=== PATIENT | female | born 1950 | race Caucasian/White ===

== ENCOUNTER → 2016-03-20 17:18 | Outpatient (CLI) | payer MEDICARE | END | disposition home or self-care (01) | LOC: D.MAMMO 03-11 11:00 | DX: Z12.31 Encounter for screening mammogram for malignant neoplasm of breast (principal) ==

== ENCOUNTER 2016-09-23 12:48 | Inpatient (IN) | payer MEDICARE ==
[~2016-09-23] VITALS: Ht 177.8 cm; Wt 96.5 kg
--- NOTE | 2016-09-23 13:15 | NUR ---
RECEIVED PT VIA WHEELCHAIR ACCOMPANIED BY HOSPITAL STAFF AND GUEST MEMBER. PT IS ALERT AND ORIENTED. ON ROOM AIR. NO IV. WILL ADMIT PT AND ATTEMPT TO SITE PT WITH IV CATHETER. WILL CONTINUE TO MONITOR.
[2016-09-23] MEDS ORDERED: VITAMIN C1000 MG PO (13:21)
[2016-09-23 13:22] VITALS: BP 108/83; BMI 30.4
[2016-09-23] MEDS ORDERED: BAYER CHEWABLE81 MG PO (13:22)
[2016-09-23 13:34] VITALS: BP 108/58
--- NOTE | 2016-09-23 13:35 | NUR ---
PT TO XRAY VIA WHEELCHAIR.
--- NOTE | 2016-09-23 13:35 | NUR ---
EVAN, CHARGE NURSE INSERTED 20G IV CATHETER INTO PTS LEFT AC X1 STICK. WILL HANG FLUIDS AND GIVE MEDICATIONS ORDERED.
[2016-09-23 13:45] LABS: INR 1.05 (0.85-1.17); PROTIME 13.6 SECONDS (11.6-15.0)
[2016-09-23 13:57] LABS: ALBUMIN 2.9 g/dL (3.4-5.0); ANION GAP 16.1 mmol/L (8-16); BILIRUBIN - TOTAL 0.71 mg/dL (0.2-1.3); CALCIUM 8.8 mg/dL (8.5-10.1); CARBON DIOXIDE 26.7 mmol/L (21.0-32.0); CREATININE - SERUM 1.1 mg/dL (0.6-1.3); POTASSIUM - SERUM 3.8 mmol/L (3.5-5.1)
[2016-09-23 14:00] LABS: HEMATOCRIT 38.9 % (36.0-48.0); HEMOGLOBIN 12.6 g/dL (12-16); MCH 25.3 pg (26.0-34.0); MCHC 32.4 g/dL (31.0-37.0); MCV 78.1 fL (80.0-100.0); PLATELET COUNT 281 10x3/uL (130-400); RBC 4.98 10x6/uL (4.00-5.40); WBC 25.8 10x3/uL (4.8-10.8)
[2016-09-23 14:25] LABS: ANISOCYTOSIS OCC; HYPOCHROMASIA OCC; LYMPHOCYTES 7 % (15-50); MONOCYTES 13 % (2-11); NEUTROPHILS 68 % (40-80); PLATELET ESTIMATE NORMAL; ROULEAUX OCC
--- NOTE | 2016-09-23 15:49 | NUR ---
SCDS PLACED ON PT ORDERED.
--- NOTE | 2016-09-23 15:49 | NUR ---
1515- PT TO CT VIA WHEELCHAIR. 1550- PT BACK FROM CT VIA WHEELCHAIR.
--- NOTE | 2016-09-23 16:12 | NUR ---
PT IS CURRENTLY LAYING IN BED ON RIGHT SIDE WITH EYES OPEN RESTING. PT GIVEN [place] HAT AND INSTRUCTED WHEN NEEDING TO URINATE LET STAFF MEMBERS KNOW SO WE CAN GET URINE SAMPLE ORDERERD, PT AGREES. PT STATES WHEN DIRECTOR CHILD ABUSE THERAPY TOOK TEMP IT WAS 100.2, WILL GIVE PT TYLENOL ORDERED FOR FEVER AND CONTINUE TO MONITOR.
[2016-09-23 16:38] VITALS: BP 102/65
[2016-09-23 17:05] LABS: APPEARANCE CLEAR (CLEAR); BILIRUBIN NEGATIVE (NEGATIVE); COLOR YELLOW (YELLOW); GLUCOSE NEGATIVE (NEGATIVE); KETONE NEGATIVE (NEGATIVE); LEUKOCYTE ESTERASE NEGATIVE (NEGATIVE); NITRITE NEGATIVE (NEGATIVE); PROTEIN TRACE mg/dL (NEGATIVE); SPECIFIC GRAVITY 1.015 (1.005-1.020); UROBILINOGEN NORMAL (NORMAL)
--- NOTE | 2016-09-23 17:44 | NUR ---
PT IS LAYING IN BED ON LEFT SIDE WITH EYES OPEN RESTING. STATES HER PAIN IS A LITTLE BETTER WITH PAIN LEVEL OF 4/10 PAIN COMING FROM PERINEAL AREA AFTER HAVING TYLENOL. NO NEED AT CURRENT TIME. WILL CONTINUE TO MONITOR.
--- NOTE | 2016-09-23 19:30 | NUR ---
ASSESSMENT COMPLETE. S1S2. ON ROOM AIR; PT SOB; SHALLOW; COUGH WITH DEEP BREATHING. NON PRODUCTIVE. UP ADLIB. RIGHT AC PIV; PATENT. WEAKNESS NOTED TO LOWER EXTREMITIES DUE TO SORE AND SWELLING AT GROIN/PERINEAL AREA AND LEFT BUTTOCKS. QUARTER SIZE DARK DISCOLORATION ON LEFT BUTTOCKS. LABIA SWELLING NOTED TO LEFT SIDE. C/O PAIN 4/10. NO OTHER COMPLAINTS AT THIS TIME.
--- NOTE | 2016-09-23 20:20 | NUR ---
DR. OLSON AT BEDSIDE.
[2016-09-23 21:02] VITALS: BP 127/64
[2016-09-24] VITALS (8 sets, daily range): BP systolic 100–122; BP diastolic 50–71; Ht 177.8 cm; Wt 96.5 kg
--- NOTE | 2016-09-24 00:11 | NUR ---
PT ASSISTED TO BEDSIDE BATHROOM. SLIGHT WEAKNESS. PT C/O DIFFICULTY URINATING; DESPITE FULL BLADDER AND URGE. WILL ATTEMPT AT LATER TIME PER REQUEST OF PT.
--- NOTE | 2016-09-24 03:30 | NUR ---
PT HAD BM; DID NOT MAKE IT TO THE RESTROOM IN TIME. PT CLEANED VIA SHOWER. FLOOR BLEACH CLEANED. FRESH LINENS, FRESH GOWN, AND NEW BRIEF PROVIDED.
--- NOTE | 2016-09-24 04:17 | NUR ---
INCREASE NOTED TO RASH/HIVES ALL OVER PT BODY. MORE NOTICABLE THAN PREVIOUS ASSESSMENT. PT DENIES ITCHING OR PAIN. PT STATES DIDN'T REALIZE IT WAS THERE.
--- NOTE | 2016-09-24 05:40 | NUR ---
CLEANED PERINEAL AREA WITH PREOP CLEAN. RASH/HIVES HAVE DECREASED AND IS BARELY VISABLE.
--- NOTE | 2016-09-24 06:51 | NUR ---
CONSENTS SIGNED FOR INCISION AND DRAINAGE TODAY WITH DR. MCKINNON.
[2016-09-24 06:52] LABS: BASOPHILS 0.1 % (0-2); EOSINOPHILS 0 % (0-7); HEMATOCRIT 35.3 % (36.0-48.0); HEMOGLOBIN 11.2 g/dL (12-16); IMMATURE GRANULOCYTES 0.8 % (0-5); LYMPHOCYTES 5.3 % (15-50); MCH 24.8 pg (26.0-34.0); MCHC 31.7 g/dL (31.0-37.0); MCV 78.3 fL (80.0-100.0); MEAN PLATELET VOLUME 10.2 fL (7.4-10.4); NEUTROPHILS 85.8 % (40-80); PLATELET COUNT 247 10x3/uL (130-400); RBC 4.51 10x6/uL (4.00-5.40); RDW 14.1 % (11.5-14.5); WBC 20.7 10x3/uL (4.8-10.8)
--- NOTE | 2016-09-24 06:52 | NUR ---
NO QUESTIONS OR CONCERNS WITH PROCEDURE. STATED DR. MCKINNON EXPLAINED IT WELL.
[2016-09-24 07:11] LABS: ALBUMIN 2.3 g/dL (3.4-5.0); ANION GAP 14.5 mmol/L (8-16); BILIRUBIN - TOTAL 0.99 mg/dL (0.2-1.3); CALCIUM 8.4 mg/dL (8.5-10.1); CARBON DIOXIDE 25.9 mmol/L (21.0-32.0); CREATININE - SERUM 0.9 mg/dL (0.6-1.3); POTASSIUM - SERUM 3.4 mmol/L (3.5-5.1); PROTEIN - SERUM 6.5 g/dL (6.4-8.2)
[2016-09-24 07:18] LABS: C-REACTIVE PROTEIN 32.5 mg/dL (0.0-0.9)
--- NOTE | 2016-09-24 08:25 | NUR ---
NURSE AT BS ASSISTING WITH NEEDS. CALL LIGHT IN REACH. WILL CONT. PLAN OF CARE.
--- NOTE | 2016-09-24 12:05 | NUR ---
PT RESTING IN BED WITH EYES OPEN CALL LIGHT IN REACH WILL MONITER
--- NOTE | 2016-09-24 14:00 | NUR ---
PT WENT TO SURGERY FOR I&D
--- NOTE | 2016-09-24 14:00 | NUR ---
PT RETURNED FROM SURGERY TOLERATED WELL VITALS STABLE WILL MONITER
--- NOTE | 2016-09-24 19:35 | NUR ---
PT LYING IN BED WITH EYES CLOSED, NORMAL RISE AND FALL OF CHEST NO SIGNS OF DISTRESS, PT O2 WAS AT 84, NC WAS NOT IN PLACE, REAPPLIED NC AND PT IS NOW AT 94. BED IN LOW POSITION CALL LIGHRT WITHIN REACH
--- NOTE | 2016-09-24 23:18 | NUR ---
PT LYING IN BED WITH EYES OPENED, REINFORCED IMPORTANCE OF LEAVING N/C IN TO PREVENT O2 DECLINING. NO NEEDS AT THIS TIME. CONTINUE TO MONITOR
[2016-09-25 04:20] VITALS: BP 106/59
[2016-09-25 06:05] LABS: BASOPHILS 0.1 % (0-2); EOSINOPHILS 0.2 % (0-7); HEMATOCRIT 31.1 % (36.0-48.0); HEMOGLOBIN 9.9 g/dL (12-16); LYMPHOCYTES 6.6 % (15-50); MCH 24.9 pg (26.0-34.0); MCHC 31.8 g/dL (31.0-37.0); MCV 78.3 fL (80.0-100.0); MEAN PLATELET VOLUME 10.3 fL (7.4-10.4); MONOCYTES 7.7 % (2-11); NEUTROPHILS 84.4 % (40-80); PLATELET COUNT 243 10x3/uL (130-400); RBC 3.97 10x6/uL (4.00-5.40); RDW 14.3 % (11.5-14.5)
[2016-09-25 06:21] LABS: WBC 15.1 10x3/uL (4.8-10.8)
[2016-09-25 08:00] VITALS: BP 119/59
--- NOTE | 2016-09-25 08:59 | NUR ---
AM MEDS GIVEN AT THIS TIME. PT IN BED, DENIES ANY NEEDS AT THIS TIME. FAMILY AT BEDSIDE, CALL LIGHT IN REACH, NAD NOTED, WILL CONTINUE TO MONITOR.
[2016-09-25 12:30] VITALS: BP 108/61
--- NOTE | 2016-09-25 13:02 | NUR ---
PT'S IV HURTING A LITTLE, CHECKED AND NO SIGNS OF INFILTRATION NOTED. RATE ON FLUIDS DECREASED TO 75CC/HR PT STATED THAT IT FEELS MUCH BETTER NOW THAT RATE IS SLOWED DOWN. PT DENIES ANY NEEDS AT THIS TIME. CALL LIGHT IN REACH, NAD NOTED, WILL CONTINUE TO MONITOR.
[2016-09-25 15:38] VITALS: BP 127/63
[2016-09-25 19:00] VITALS: BP 143/77
--- NOTE | 2016-09-25 19:00 | NUR ---
REC REPORT, ASSUMED CARE. ALERT/AWAKE, ORIENTED X 4 DENIES ANY NEEDS. IN CONTACT ISOLATION. ORIENTED TO CALL LIGHT FOR ANY NEEDS.
--- NOTE | 2016-09-25 22:39 | NUR ---
20 GAUGE TO LEFT FOREARM X 1 STICK. RIGHT FOREARM INFILTRATED, DC'D WITH TIP INTACT.
[2016-09-26] VITALS: BP 143/65
--- NOTE | 2016-09-26 02:29 | NUR ---
REQUESTED MORE PULL-UP BRIEFS. IS WEARING THEM FOR THE DRAINAGE FROM I/D SITE ON LEFT BUTTOCK, DRAINING PINKISH CLEAR SEROSANGUINEOUS FLUID. NO FOUL ODOR NOTED.
[2016-09-26 04:00] VITALS: BP 149/65
[2016-09-26 06:07] LABS: BASOPHILS 0.2 % (0-2); EOSINOPHILS 0.6 % (0-7); IMMATURE GRANULOCYTES 2.1 % (0-5); LYMPHOCYTES 12.3 % (15-50); MCH 24.9 pg (26.0-34.0); MCHC 32.3 g/dL (31.0-37.0); MCV 77.3 fL (80.0-100.0); MEAN PLATELET VOLUME 10.4 fL (7.4-10.4); MONOCYTES 7.8 % (2-11); PLATELET COUNT 284 10x3/uL (130-400); RBC 4.01 10x6/uL (4.00-5.40); RDW 14.3 % (11.5-14.5); WBC 12.6 10x3/uL (4.8-10.8)
[2016-09-26 06:10] LABS: ALBUMIN 1.9 g/dL (3.4-5.0); ALKALINE PHOSPHATASE 114 U/L (46-116); ALT (SGPT) 36 U/L (10-68); CALC OSMOLALITY 274 mosm/kg (275-300); CALCIUM 7.9 mg/dL (8.5-10.1); CARBON DIOXIDE 25.7 mmol/L (21.0-32.0); CHLORIDE - SERUM 103 mmol/L (98-107); CREATININE - SERUM 0.7 mg/dL (0.6-1.3); GLUCOSE 100 mg/dL (74-106); POTASSIUM - SERUM 3.1 mmol/L (3.5-5.1); PROTEIN - SERUM 5.9 g/dL (6.4-8.2); SODIUM 138 mmol/L (136-145); UREA NITROGEN 9 mg/dL (7-18); eGFR NON AFRICAN AMERICAN 89 mL/min (90-120)
[2016-09-26 08:01] VITALS: BP 136/68
--- NOTE | 2016-09-26 08:40 | NUR ---
ADMINISTERED AM MEDS. PT IN BED, DENIES ANY NEEDS AT THIS TIME. CALL LIGHT IN REACH, NAD NOTED, WILL CONTINUE TO MONITOR.
[2016-09-26 11:52] VITALS: BP 145/82
--- NOTE | 2016-09-26 13:03 | NUR ---
Nutrition follow-up: Diet: Regular PO intake 50-75% of meals labs reviewed +BM, loose Wt: 225# Recommend starting Danny nutritional supplement, 1 pkt BID mixed in juice. RDN following.
--- NOTE | 2016-09-26 14:51 | OP ---
PATIENT NAME: PRINCESS CARRILLO MEDICAL RECORD: [id number] :52 LOCATION:D.M2 D.2132 ADMISSION DATE:09/23/16 SURGEON: ISSAC MCKINNON MD DATE OF OPERATION: 09/24/2016 PREOPERATIVE DIAGNOSES: 1. Sepsis. 2. Left buttock abscess. 3. Urinary retention. POSTOPERATIVE DIAGNOSES: 1. Sepsis. 2. Left buttock abscess. 3. Urinary retention. PROCEDURE: Left buttock I&D. SURGEON: Issac Mckinnon MD REPORT OF PROCEDURE: The patient was placed in lithotomy position and the perianal region was prepped and draped in sterile fashion. A skin incision was made on the left buttock overlying some very thin tissue and there was immediately explosion of purulent material. Cultures were taken times 2. The material was very foul smelling and thick ojeda in color. The wound was suctioned out and then irrigated with peroxide and saline solution. We then performed a debridement of any of the subcutaneous fatty tissue, which was necrotic. At the conclusion of the case, we had most of the area clean. The abscess extended up to the patient's left labia. The wound was then packed with 2 inch Kerlix dipped in peroxide. COMPLICATIONS: None. CONDITION: Stable. ANESTHESIA: General endotracheal. BLOOD LOSS: 50 mL. TRANSINT:[id number] Voice Confirmation ID: [id number] DOCUMENT ID: [id number] ISSAC MCKINNON MD at 1451 CC: [id number] DICTATION DATE: 09/24/16 1521 ROLLER: 09/25/16 0[address] [place] [address]
[2016-09-26 16:07] VITALS: BP 132/76
[2016-09-26 19:00] VITALS: BP 157/82
--- NOTE | 2016-09-26 19:30 | NUR ---
RECEIVED REPORT, WILL ASSUME CARE OF PT, PT VISITING WITH FRIEND, DENIES ANY NEEDS AT THIS TIME, BED IS LOW, SRX2, CALL LIGHT IN REACH, WILL CONTINUE PLAN OF CARE
--- NOTE | 2016-09-27 03:51 | NUR ---
ASSESSMENT COMPLETE, SEE FLOWSHEET, PT DENIES ANY NEEDS AT THIS TIME, BED IS LOW, SRX2, CALL LIGHT IN REACH, WILL CONTINUE PLAN OF CARE
[2016-09-27 04:00] VITALS: BP 187/71
[2016-09-27 07:22] LABS: BASOPHILS 0.5 % (0-2); EOSINOPHILS 0.6 % (0-7); HEMATOCRIT 31.4 % (36.0-48.0); HEMOGLOBIN 9.9 g/dL (12-16); LYMPHOCYTES 13.8 % (15-50); MCH 24.6 pg (26.0-34.0); MCHC 31.5 g/dL (31.0-37.0); MCV 77.9 fL (80.0-100.0); MEAN PLATELET VOLUME 9.9 fL (7.4-10.4); MONOCYTES 12.7 % (2-11); NEUTROPHILS 69.4 % (40-80); PLATELET COUNT 303 10x3/uL (130-400); RBC 4.03 10x6/uL (4.00-5.40); RDW 14.4 % (11.5-14.5); WBC 11.6 10x3/uL (4.8-10.8)
[2016-09-27 07:39] LABS: ALKALINE PHOSPHATASE 119 U/L (46-116); ALT (SGPT) 43 U/L (10-68); BILIRUBIN - TOTAL 0.29 mg/dL (0.2-1.3); CALC OSMOLALITY 273 mosm/kg (275-300); CALCIUM 8.1 mg/dL (8.5-10.1); CARBON DIOXIDE 29.2 mmol/L (21.0-32.0); CHLORIDE - SERUM 104 mmol/L (98-107); CREATININE - SERUM 0.6 mg/dL (0.6-1.3); GLUCOSE 108 mg/dL (74-106); POTASSIUM - SERUM 3.1 mmol/L (3.5-5.1); SODIUM 138 mmol/L (136-145); UREA NITROGEN 5 mg/dL (7-18); VANCOMYCIN - TROUGH 4.5 ug/mL (10.0-20.0); eGFR NON AFRICAN AMERICAN > 90 mL/min (90-120)
--- NOTE | 2016-09-27 07:40 | NUR ---
PT IN BED AWAKE AND ALERT. SPOKE WITH PT ABOUT DISCHARGE PROCEDURE. DENIES ANY NEEDS AT THIS TIME WILL CONTINUE TO MONITOR.
[2016-09-27 08:00] VITALS: BP 158/84
--- NOTE | 2016-09-27 10:40 | NUR ---
IN CONTACT ISOLATION. PATIENT COMING OUT OF THE RESTROOM. DENIES ANY NEEDS AT THIS TIME .
[2016-09-27 11:53] VITALS: BP 158/81
--- NOTE | 2016-09-27 18:45 | NUR ---
RESTING IN BED WITH EYES OPEN. PATIENT COMPLAINED OF HAVING SOME DRAINAGE FROM S/P VULVA I&D AND ALSO STATES THAT LABIA INCREASING IN SWELLING. LEFT LABIA RED, SWOLLEN, WARM TO TOUCH. SEROSANGINOUS DRESSING NOTED. AWAITING FOR OBGYN COLGROVE TO ASSESS PATIENT. CLEAN DEPENDS UNDERGARMET PROVIDED AND ASSISTED PATIENT TO PUT DEPENDS ON. WILL AWAIT FOR ORDERS FROM OBGYN.
--- NOTE | 2016-09-27 18:58 | NUR ---
DR KAISER CALLED TO REPORT WOUND IN PERINEAL AREA. NO NEW ORDERS GIVEN.
--- NOTE | 2016-09-27 19:10 | NUR ---
PT IS SITTING UP IN BED STATED HAD AN EVENTFUL DAY, WOUND IN HER PERSPECTIVE HAS GOTTEN RELATIVELY WORSE, PT IS VERY ALERT AND TALKATIVE, BED IN LOW POSITION, CALL LIGHT IN REACH WILL CONTINUE WITH CARE PLAN
[2016-09-27 20:00] VITALS: BP 172/78
[2016-09-28] VITALS: BP 158/75
--- NOTE | 2016-09-28 03:52 | NUR ---
PT LT ARM SWOLLEN, IV INFILTRATED, ELEVATED PT ARM AND STOPPED FLUIDS, ZOSYN NOT DUE UNTIL 729. BED IN LOW POSITION, CALL LIGHT WITHIN REACH
[2016-09-28 04:00] VITALS: BP 164/76
--- NOTE | 2016-09-28 05:30 | NUR ---
ATTEMPTED TO START NEW IV IN RT ARM UNSUCCESSFUL, STUCK PT TWICE ADVISED DAY SHIFT WILL DO
[2016-09-28 06:10] LABS: BASOPHILS 0.5 % (0-2); EOSINOPHILS 0.8 % (0-7); HEMATOCRIT 34.7 % (36.0-48.0); HEMOGLOBIN 11.1 g/dL (12-16); IMMATURE GRANULOCYTES 3.5 % (0-5); LYMPHOCYTES 18.9 % (15-50); MCV 78.2 fL (80.0-100.0); MEAN PLATELET VOLUME 10.1 fL (7.4-10.4); MONOCYTES 10.9 % (2-11); NEUTROPHILS 65.4 % (40-80); PLATELET COUNT 363 10x3/uL (130-400); RBC 4.44 10x6/uL (4.00-5.40); RDW 14.4 % (11.5-14.5); WBC 13.2 10x3/uL (4.8-10.8)
[2016-09-28 07:07] LABS: ALBUMIN 2.2 g/dL (3.4-5.0); ALKALINE PHOSPHATASE 118 U/L (46-116); ALT (SGPT) 51 U/L (10-68); BILIRUBIN - TOTAL 0.32 mg/dL (0.2-1.3); CALC OSMOLALITY 277 mosm/kg (275-300); CALCIUM 8.5 mg/dL (8.5-10.1); CARBON DIOXIDE 30.9 mmol/L (21.0-32.0); CHLORIDE - SERUM 103 mmol/L (98-107); CREATININE - SERUM 0.6 mg/dL (0.6-1.3); GLUCOSE 104 mg/dL (74-106); POTASSIUM - SERUM 3.4 mmol/L (3.5-5.1); PROTEIN - SERUM 6.7 g/dL (6.4-8.2); SODIUM 141 mmol/L (136-145); UREA NITROGEN 4 mg/dL (7-18); eGFR NON AFRICAN AMERICAN > 90 mL/min (90-120)
--- NOTE | 2016-09-28 07:19 | NUR ---
PT IN BATHROOM. DENIES NEEDS AT THIS TIME. WILL CONTINUE TO MONITOR.
--- NOTE | 2016-09-28 08:30 | NUR ---
22 GAUGE IV PLACED TO RIGHT HAND X 1 STICK. GOOD BLOOD RETURN, EASY FLUSH. TAPED, DATED AND SECURED. TOLERATED IV PLACEMENT WELL. AT BEDSIDE AT THIS TIME ALSO TO RECHECK LEFT LABIA AND SURGICAL WOUND. NO DISTRESS.
[2016-09-28 08:34] VITALS: BP 184/85
--- NOTE | 2016-09-28 09:02 | NUR ---
HELD PTs MUCINEX. I WAS ABOUT TO GIVE MEDICATION SHE REFUSED. MEDICATION PLACED IN SHARPS CONTAINER.
--- NOTE | 2016-09-28 09:03 | NUR ---
HELD PTs TESSALON. I WAS ABOUT TO GIVE MEDICATION PT REFUSED. MEDICATION PLACED IN SHARPS CONTAINER
[2016-09-28 12:04] VITALS: BP 188/100
--- NOTE | 2016-09-28 14:26 | NUR ---
PATIENT REFUSED SITAON KARMA, STATES IT MAKES HER COUGH MORE INSTEAD OF HELPING HER.
[2016-09-28 16:00] VITALS: BP 170/82
--- NOTE | 2016-09-28 20:00 | NUR ---
PT LYING IN BED WITH HOB UP FOR COMFORT. WATCHING TV. ALERT & ORIENTED. CONTACT ISOLATION FOR MRSA. ELECTROLYTE PROTOCOL. NO O2. LEFT HAND SALINE LOC. UP ADLIB. PT STATES HER PAIN LEVEL IS 0/10. BED IN LOWEST POSITION AND CALL LIGHT WITHIN REACH.
[2016-09-28 21:40] VITALS: BP 171/85
[2016-09-29] VITALS: BP 155/78
--- NOTE | 2016-09-29 01:15 | NUR ---
PT STATES SHE HAS A HEADACHE. TYLENOL GIVEN.
--- NOTE | 2016-09-29 03:12 | NUR ---
PT LYING IN BED. EYES CLOSED. CHEST RISING AND FALLING. BED IN LOWEST POSITION AND CALL LIGHT WITHIN REACH.
--- NOTE | 2016-09-29 05:07 | NUR ---
ASLEEP. WILL CONTINUE TO MONITOR.
[2016-09-29 06:15] LABS: BASOPHILS 0.7 % (0-2); EOSINOPHILS 1.5 % (0-7); HEMATOCRIT 34.5 % (36.0-48.0); HEMOGLOBIN 10.8 g/dL (12-16); IMMATURE GRANULOCYTES 4.6 % (0-5); LYMPHOCYTES 19.5 % (15-50); MCH 24.7 pg (26.0-34.0); MCHC 31.3 g/dL (31.0-37.0); MCV 78.9 fL (80.0-100.0); MEAN PLATELET VOLUME 9.8 fL (7.4-10.4); MONOCYTES 11.3 % (2-11); NEUTROPHILS 62.4 % (40-80); PLATELET COUNT 382 10x3/uL (130-400); RBC 4.37 10x6/uL (4.00-5.40); RDW 14.5 % (11.5-14.5); WBC 10.4 10x3/uL (4.8-10.8)
[2016-09-29 06:24] LABS: ALBUMIN 2.1 g/dL (3.4-5.0); ALKALINE PHOSPHATASE 102 U/L (46-116); ALT (SGPT) 55 U/L (10-68); BILIRUBIN - TOTAL 0.26 mg/dL (0.2-1.3); CALC OSMOLALITY 278 mosm/kg (275-300); CALCIUM 8.4 mg/dL (8.5-10.1); CARBON DIOXIDE 32.7 mmol/L (21.0-32.0); CHLORIDE - SERUM 103 mmol/L (98-107); CREATININE - SERUM 0.7 mg/dL (0.6-1.3); GLUCOSE 104 mg/dL (74-106); POTASSIUM - SERUM 3.8 mmol/L (3.5-5.1); PROTEIN - SERUM 6.5 g/dL (6.4-8.2); SODIUM 141 mmol/L (136-145); eGFR NON AFRICAN AMERICAN 89 mL/min (90-120)
[2016-09-29 06:33] LABS: UREA NITROGEN 8 mg/dL (7-18)
[2016-09-29 07:34] VITALS: BP 178/80
--- NOTE | 2016-09-29 08:21 | NUR ---
AM MEDS GIVEN PT REFUSED TO TAKE TESSALON, MUCINEX AND ASPIRIN. IVBP ZOSYN HUNG AT THIS TIME. PT IN BED, DENIES ANY NEEDS AT THIS TIME. CALL LIGHT IN REACH, NAD NOTED, WILL CONTINUE TO MONITOR.
--- NOTE | 2016-09-29 10:17 | NUR ---
RECEIVED CALL FROM LEROY HUGHES THAT PT CAN COME OFF ISOLATION.
[2016-09-29 11:50] VITALS: BP 149/86
--- NOTE | 2016-09-29 13:23 | NUR ---
Nutrition follow-up: Diet: Regular PO intake ~100% of most meals Pt also taking Danny nutritional supplement BID to aid with wound healing. Labs reviewed Wt: 223# RDN following.
--- NOTE | 2016-09-29 13:34 | NUR ---
ADMINISTERED 325MG OF TYLENOL FOR PAIN LEVEL OF 6/10. PT DENIES ANY OTHER NEEDS AT THIS TIME. CALL LIGHT IN REACH, NAD NOTED, WILL CONTINUE TO MONITOR.
[2016-09-29 15:31] VITALS: BP 133/65
--- NOTE | 2016-09-29 19:34 | NUR ---
PT LYING IN BED WITH HOB UP FOR COMFORT. WATCHING TV. ALERT & ORIENTED. NO O2. LEFT HAND SALINE LOC. UP ADLIB. PT STATES HER PAIN LEVEL IS 0/10. BED IN LOWEST POSITION AND CALL LIGHT WITHIN REACH.
[2016-09-29 20:59] VITALS: BP 171/73
[2016-09-30 01:20] VITALS: BP 179/81
--- NOTE | 2016-09-30 03:08 | NUR ---
RESTING IN BED WITH EYES CLOSED. RESPS EVEN/NONLABORED. NO DISTRESS. CPOC.
[2016-09-30 05:04] VITALS: BP 156/81
[2016-09-30 05:30] LABS: BASOPHILS 0.4 % (0-2); EOSINOPHILS 1.9 % (0-7); HEMATOCRIT 36.9 % (36.0-48.0); HEMOGLOBIN 11.5 g/dL (12-16); IMMATURE GRANULOCYTES 4.5 % (0-5); LYMPHOCYTES 23.2 % (15-50); MCH 24.7 pg (26.0-34.0); MCHC 31.2 g/dL (31.0-37.0); MCV 79.2 fL (80.0-100.0); MEAN PLATELET VOLUME 9.8 fL (7.4-10.4); MONOCYTES 8.4 % (2-11); NEUTROPHILS 61.6 % (40-80); PLATELET COUNT 431 10x3/uL (130-400); RBC 4.66 10x6/uL (4.00-5.40); RDW 14.6 % (11.5-14.5); WBC 11.2 10x3/uL (4.8-10.8)
[2016-09-30 06:11] LABS: ALBUMIN 2.4 g/dL (3.4-5.0); ALKALINE PHOSPHATASE 103 U/L (46-116); ALT (SGPT) 61 U/L (10-68); BILIRUBIN - TOTAL 0.29 mg/dL (0.2-1.3); CALC OSMOLALITY 279 mosm/kg (275-300); CALCIUM 8.7 mg/dL (8.5-10.1); CARBON DIOXIDE 31.1 mmol/L (21.0-32.0); CHLORIDE - SERUM 102 mmol/L (98-107); CREATININE - SERUM 0.7 mg/dL (0.6-1.3); GLUCOSE 100 mg/dL (74-106); POTASSIUM - SERUM 4.1 mmol/L (3.5-5.1); PROTEIN - SERUM 7.1 g/dL (6.4-8.2); SODIUM 140 mmol/L (136-145); eGFR NON AFRICAN AMERICAN 89 mL/min (90-120)
[2016-09-30 06:15] LABS: UREA NITROGEN 14 mg/dL (7-18)
--- NOTE | 2016-09-30 07:10 | NUR ---
RECEIVED REPORT. ASSUMED CARE OF PATIENT. CALL LIGHT WITHIN REACH. PATIENT ALERT AND ORIENTED. RESTING IN BED WITH EYES OPEN, RESP EVEN AND UNLABORED. NO DISTERSS. DENIES NEEDS AT THIS TIME.
[2016-09-30 08:12] VITALS: BP 158/81
--- NOTE | 2016-09-30 09:00 | NUR ---
MEDICATED FOR HEADACHE AT THIS TIME. REFUSED SOME AM MEDS. NO DISTRESS.
[2016-09-30 11:47] VITALS: BP 155/74
--- NOTE | 2016-09-30 13:00 | NUR ---
CALLED AND SPOKE WITH SETTER OUT TO REQUEST THAT RETURN CALL. SNACK STEWARD GOT ON THE PHONE AND GAVE THIS SERVICE WRITER HIS CELL NUMBER TO CALL HIM DIRECTLY AT . REEMA NG RN CALLED L&D TO MAKE SURE WAS NOT DOWNSTAIRS BEFORE CALLING HIS CELL. REEMA SPOKE WITH SETH AND SETH STATED THAT SHE HAD TO CALL HIM IN 10 MINUTES AND WOULD HAVE HIM CALL [facility] AND ASK DIRECTLY FOR THIS SERVICE WRITER. THE PURPOSE FOR THE CALL TO IS TO FIND OUT WHAT PLAN HE HAS FOR THIS PATIENT. PRIMARY CARE PHYSICIAN WOULD LIKE TO KNOW THE PLAN FOR THIS PATIENT.
--- NOTE | 2016-09-30 14:00 | NUR ---
AT BEDSIDE FOR ROUNDS. DR. BARRON STATES HE WILL SIGN OFF ON PATIENT, THAT OBGYN NEEDS TO FOLLOW PATIENT. WHEN LEAVING THE ROOM THIS TIN WORKER LEFT ROOM WITH AND SPECIFICALLY ASKED IF HE WAS SIGNING OFF ON PATIENT AND HE STATED HE WAS SIGNING OFF AND I ASKED FOR OPINION, WHAT HE THOUGHT NEEDED TO BE DONE AND HE STATED IT WOULD NOT HURT TO DO AN I&D ON THE LEFT LABIA. THANKED .
[2016-09-30 15:54] VITALS: BP 167/81
--- NOTE | 2016-09-30 18:14 | NUR ---
RESTING IN BED, RESP EVEN AND UNLABORED. NO DISTRESS. CALL LIGHT WITHIN REACH.
--- NOTE | 2016-09-30 19:47 | NUR ---
PT LYING IN BED WITH HOB UP FOR COMFORT. WATCHING TV. ALERT & ORIENTED. NO O2. RIGHT HAND SALINE LOC. UP ADLIB. PT STATES HER PAIN LEVEL IS A 3/10. BED IN LOWEST POSITION AND CALL LIGHT WITHIN REACH.
--- NOTE | 2016-09-30 20:10 | NUR ---
RIGHT HAND IV INFILTRATED. D/C WITH CATH TIP INTACT. WILL ATTEMPT TO RESITE.
--- NOTE | 2016-09-30 20:36 | NUR ---
INSERTED 22GAUGE IN LEFT FA ON 1ST ATTEMPT. PT TOLERATED PROCEDURE WELL.
[2016-09-30 20:39] VITALS: BP 151/76
[2016-10-01 00:07] VITALS: BP 151/73
--- NOTE | 2016-10-01 01:40 | NUR ---
PT LYING IN BED ON HER RIGHT SIDE, EYES CLOSED, RESPIRATIONS EVEN AND UNLABORED. CONTINUE TO MONITOR CLOSELY. BED LOW, CALL LIGHT IN REACH, SIDE RAILS X 2, HOB 10 DEGREES.
--- NOTE | 2016-10-01 02:59 | NUR ---
PT LYING IN BED, EYES CLOSED. CHEST RISING AND FALLING. BED IN LOWEST POSITION AND CALL LIGHT WITHIN REACH.
--- NOTE | 2016-10-01 05:07 | NUR ---
PT LYING IN BED. EYES CLOSED. RESP. EVEN. BED IN LOWEST POSITION AND CALL LIGHT WITHIN REACH.
[2016-10-01 05:12] VITALS: BP 139/65
--- NOTE | 2016-10-01 07:27 | NUR ---
AM ROUNDS - PT RESTING QUIETLY, RR EVEN AND UNLABORED. BED IN LOWEST POSTION, CALL PATEL IN REACH, WILL CTM.
[2016-10-01 09:40] VITALS: BP 159/78
[2016-10-01 12:15] LABS: BASOPHILS 0.3 % (0-2); EOSINOPHILS 1.2 % (0-7); HEMATOCRIT 38.7 % (36.0-48.0); HEMOGLOBIN 12.2 g/dL (12-16); IMMATURE GRANULOCYTES 2.7 % (0-5); LYMPHOCYTES 20.8 % (15-50); MCH 24.9 pg (26.0-34.0); MCHC 31.5 g/dL (31.0-37.0); MCV 79.1 fL (80.0-100.0); MEAN PLATELET VOLUME 9.3 fL (7.4-10.4); MONOCYTES 8.2 % (2-11); NEUTROPHILS 66.8 % (40-80); PLATELET COUNT 427 10x3/uL (130-400); RBC 4.89 10x6/uL (4.00-5.40); RDW 14.9 % (11.5-14.5)
[2016-10-01 12:25] VITALS: BP 131/66
[2016-10-01 12:28] LABS: ANION GAP 11.3 mmol/L (8-16); CALCIUM 8.8 mg/dL (8.5-10.1); CARBON DIOXIDE 29.7 mmol/L (21.0-32.0); CREATININE - SERUM 0.9 mg/dL (0.6-1.3)
[2016-10-01] MEDS ORDERED: NORVASC5 MG PO (14:20)
[2016-10-01] MEDS ORDERED: BACTRIM DS TABL1 TAB PO (14:21)
--- NOTE | 2016-10-01 14:53 | NUR ---
6603-CALL PLACED TO DR BARRON TO SEE ABOUT DISCHARGE, OFFICE REPORTS HE IS IN A MEETING AND TO PAGE DR BARNETT. PAGED. AWAITING CALL BACK.
--- NOTE | 2016-10-01 14:57 | NUR ---
Patient Name: PRINCESS CARRILLO Encounter No: [id number] : 1950 Primary Insurance: [id number] Anticipated DC Date: 10-01-2016 Planned Disposition: Home DCP follow-up note: CM RECEIVED DISCHARGE ORDER, MET WITH PT IN ROOM TO DISCUSS DISCHARGE NEEDS AND PLANNING. CM DISCUSSED AVAILABILITY OF HOME HEALTH, REHAB SERVICES AND MEDICAL EQUIPMENT. PT DENIES DISCHARGE NEEDS. PHP CONSULTANT IS HERE TO TRANSPORT HOME AT DISCHARGE. IMPORTANT MESSAGE FROM [employer] PROVIDED AND EXPLAINED. PERFORMING ARTS TECHNICIANS NOTIFIED. Henrry Valle, CASE MANAGEMENT
--- NOTE | 2016-10-01 15:58 | NUR ---
LUANNE ACEVES FROM DR BARNETT.
[2016-10-01 16:12] LABS: AEROBE ID Preliminary report (())
[2016-10-01 16:12] LABS: AEROBE ID Preliminary report (())
[2016-10-01 16:29] VITALS: BP 150/76
--- NOTE | 2016-10-01 16:48 | NUR ---
PT DISCHARGED. DISCHARGED INSTRUCTIONS PROVIDED TO FAMILY AND PT, VERBALIZED UNDERSTANDING. IV REMOVED WITH CATHETER TIP INTACT, BANDAGE APPLIED. PT TO BE DISCHARGED WITH FAMILY MEMBER HOME.
== END 2016-10-01 16:49 | disposition home or self-care (01) | DRG 854 ==
LOC: D.M2 12:48
PROVIDERS: Family Medicine; Surgery; ADMIT Family Medicine
PROC: 0J990ZZ Drainage of Buttock Subcutaneous Tissue and Fascia, Open Approach (ICD-10-PCS; principal; 2016-09-24 12:00)
DX: A41.9 Sepsis, unspecified organism (principal); L03.317 Cellulitis of buttock; N76.4 Abscess of vulva; E86.0 Dehydration; R33.9 Retention of urine, unspecified; B96.20 Unspecified Escherichia coli [E. coli] as the cause of diseases classified elsewhere; D64.9 Anemia, unspecified

== ENCOUNTER 2017-02-03 05:17 | Day surgery (SDC) | payer MEDICARE ==
[2017-02-02 10:47] LABS: BASOPHILS 0.4 % (0-2); EOSINOPHILS 2.4 % (0-7); HEMATOCRIT 38.7 % (36.0-48.0); HEMOGLOBIN 12.2 g/dL (12-16); IMMATURE GRANULOCYTES 0.3 % (0-5); LYMPHOCYTES 31.5 % (15-50); MCH 25.3 pg (26.0-34.0); MCHC 31.5 g/dL (31.0-37.0); MCV 80.3 fL (80.0-100.0); MEAN PLATELET VOLUME 9.5 fL (7.4-10.4); MONOCYTES 13.8 % (2-11); NEUTROPHILS 51.6 % (40-80); RBC 4.82 10x6/uL (4.00-5.40); RDW 14.1 % (11.5-14.5); WBC 6.7 10x3/uL (4.8-10.8)
[2017-02-02 11:00] LABS: PLATELET COUNT 245 10x3/uL (130-400)
[2017-02-02 11:06] LABS: CALC OSMOLALITY 279 mosm/kg (275-300); CALCIUM 8.5 mg/dL (8.5-10.1); CARBON DIOXIDE 28.5 mmol/L (21.0-32.0); CHLORIDE - SERUM 103 mmol/L (98-107); CREATININE - SERUM 0.6 mg/dL (0.6-1.3); GLUCOSE 94 mg/dL (74-106); POTASSIUM - SERUM 4.1 mmol/L (3.5-5.1); SODIUM 138 mmol/L (136-145); UREA NITROGEN 23 mg/dL (7-18); eGFR NON AFRICAN AMERICAN > 90 mL/min (90-120)
[~2017-02-03] VITALS: Ht 175.3 cm; Wt 96.2 kg
[~2017-02-03 05:17] MED LIST: "\\\"BP MED\\\"" PO; ASCORBIC ACID500 MG PO; BACTRIM DS TABL1 TAB PO; BAYER CHEWABLE81 MG PO; NORVASC5 MG PO
[2017-02-03] MEDS ORDERED: BISOPROLOL-HCT1 EAC1 PO (06:22)
[2017-02-03 06:25] VITALS: BP 160/70; Ht 175.3 cm; Wt 96.2 kg
[2017-02-03] MEDS ORDERED: HYDROCODONE-APA1 TAB PO (09:17)
--- NOTE | 2017-02-03 10:08 | NUR ---
1005 [place] DIET SERVED.
--- NOTE | 2017-02-10 12:19 | OP ---
PATIENT NAME: PRINCESS CARRILLO MEDICAL RECORD: [id number] :52 LOCATION:D.OPS ADMISSION DATE: SURGEON: ISSAC MCKINNON MD DATE OF OPERATION: 02/03/2017 PREOPERATIVE DIAGNOSES: 1. Left labial cyst. 2. Hypertension. POSTOPERATIVE DIAGNOSES: 1. Left labial cyst. 2. Hypertension. PROCEDURE: Excision of 3 cm left labial cyst. SURGEON: Issac Mckinnon MD REPORT OF PROCEDURE: The patient was placed in the lithotomy position and the perianal region was prepped and draped in sterile fashion. There was a small opening in the left labial region. This was penetrated and there was spillage of blood and some murky appearing fluid as only a small amount that was removed. We then made an ovoid incision around this and was able to come around a cystic cavity. This totalled about 3 cm in greatest diameter. We removed as much tissue as we could and eventually we had what appeared to be a normal appearing fascial tissue and fatty tissue. We treated the area with electrocautery and tried to stop any bleeding that was present. We then irrigated out the wound thoroughly with normal saline. The wound was inspected one last time and we assured that there was no sign of any bleeding. There did not appear to be any fistulous tracts present. The subcutaneous tissues were then reapproximated with multiple interrupted 3-0 Vicryl and the skin was closed with running subcutaneous 5-0 Monocryl. The wound was then dressed with Dermabond. A total of 10 mL 0.25% plain was infused into the surrounding tissues. COMPLICATIONS: None. CONDITION: Stable. ANESTHESIA: General endotracheal and local. BLOOD LOSS: 30 mL. TRANSINT:[id number] Voice Confirmation ID: [id number] DOCUMENT ID: [id number] ISSAC MCKINNON MD at 1219 CC: GALDINO ORTIZ [id number] DICTATION DATE: 02/03/17920 FLORAL DEPARTMENT SPECIALIST: 02/03/17 1049 [facility] 02/03/17 [id number] [place] [address]
== END 2017-02-03 11:15 | disposition home or self-care (01) ==
LOC: D.OPS 05:17 → D.PAN 07:30 → D.OPS 07:30
PROVIDERS: Surgery
DX: N90.7 Vulvar cyst (principal); I10 Essential (primary) hypertension; Z01.812 Encounter for preprocedural laboratory examination

== ENCOUNTER → 2017-04-07 13:43 | Outpatient (CLI) | payer MEDICARE ==
[2017-02-03 06:25] VITALS: BMI 31.3
[~2017-04-07 13:43] MED LIST changes: +BISOPROLOL-HCT1 EAC1 PO; +HYDROCODONE-APA1 TAB PO
== END | disposition home or self-care (01) ==
LOC: D.CT 13:43
DX: L02.91 Cutaneous abscess, unspecified (principal)

== ENCOUNTER 2017-04-23 08:26 | Day surgery (SDC) | payer MEDICARE ==
[~2017-04-23] VITALS: Ht 175.3 cm; Wt 102.5 kg
--- NOTE | ~2017-04-23 | OP ---
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 PROCEDURE: 1. Pelvic exam under anesthesia. 2. Rigid proctoscopy. 3. Anal exam under anesthesia. 4. Excision of left perineal chronic cyst. SURGEON: Christofer Mckinnon MD REPORT OF PROCEDURE: The patient was placed in lithotomy position and the perianal region was prepped and draped in sterile fashion. A weighted speculum was inserted in the patient's vagina, and we inspected the area all the way up to the cervix, I did not see any evidence of a fistulous tract or inflammatory changes in the song of the vaginal cuff. We inspected the area closely and saw no evidence of any abnormal lesions. We then performed a digital exam of the left side wall of the vagina and again felt no sign of any inflammatory changes, masses or lesions. We then performed a rigid proctoscopy where I was able to get up to 25 cm up to the sigmoid colon. As I pulled back, I again did not see any evidence of any fistulous tracts. There were no signs of any abscesses, masses or indurated tissue. There were no polyps visible. We continued our complete pull back all the way to the anus. We then performed a digital rectal examination and again felt no signs of any inflammatory masses or lesions. The patient had a healed scar in the left perineal region. This was reopened and once we did, there was a small pocket of tissue that was present. This pocket of tissue was excised using electrocautery. A cruciate incision was made to open up the space appropriately. We did a thorough examination of the tissues and found what appeared to be a small tract that was running down towards the rectum and this was penetrated with a syringe and peroxide was infused. We again checked the vaginal wall and the rectal wall and there was no sign of any fistulous drainage visible. At this point, we just excised this tract of tissue until we got down to normal fatty appearing tissue. We then broke up any of the loculated adhesions that were present in the area. There was no sign of any pus ever noted during the procedure. At the conclusion of the case we had what appeared to be normal fatty tissue in all directions. The wound was irrigated out thoroughly with normal saline and peroxide. Care was taken to stop any bleeding that was encountered using electrocautery. At the conclusion of the case, there was no sign of any surgical bleeding. We then packed the wound with plain 4 x 4 and dressed with dry 4 x 4s and ABD pad. COMPLICATIONS: None. CONDITION: Stable. ANESTHESIA: General endotracheal. BLOOD LOSS: 50 mL. OPERATIVE REPORT [id number] PRINCESS CARRILLO TRANSINT:[id number] Voice Confirmation ID: [id number] DOCUMENT ID: [id number] CHRISTOFER MCKINNON MD CC: [id number] DICTATION DATE: 04/23/17 1135 HAND TIER: 04/23/17 1155 [id number] [place] [address]
[2017-04-23 09:12] LABS: BASOPHILS 0.5 % (0-2); EOSINOPHILS 0.7 % (0-7); HEMATOCRIT 41.3 % (36.0-48.0); HEMOGLOBIN 13.1 g/dL (12-16); IMMATURE GRANULOCYTES 1.2 % (0-5); MCH 25.6 pg (26.0-34.0); MCHC 31.7 g/dL (31.0-37.0); MCV 80.7 fL (80.0-100.0); MEAN PLATELET VOLUME 9.6 fL (7.4-10.4); MONOCYTES 12.2 % (2-11); NEUTROPHILS 62.4 % (40-80); PLATELET COUNT 249 10x3/uL (130-400); RBC 5.12 10x6/uL (4.00-5.40); RDW 15.4 % (11.5-14.5); WBC 11.8 10x3/uL (4.8-10.8)
[2017-04-23 09:20] LABS: ANION GAP 11.3 mmol/L (8-16); CALCIUM 9.5 mg/dL (8.5-10.1); CARBON DIOXIDE 29.8 mmol/L (21.0-32.0); CREATININE - SERUM 0.9 mg/dL (0.6-1.3); POTASSIUM - SERUM 4.1 mmol/L (3.5-5.1)
[2017-04-23] MEDS ORDERED: PREDNISONE10 MG PO (09:44)
[2017-04-23] MEDS ORDERED: MEDROL DOSE PACK4 MG PO (09:44)
[2017-04-23] MEDS ORDERED: ZANTAC 7575 MG PO (09:44)
[2017-04-23 09:49] VITALS: BP 187/77; Ht 175.3 cm; Wt 102.5 kg
[2017-04-23] MEDS ORDERED: HYDROCODONE-APA1 TAB PO (11:29)
[2017-04-23] MEDS ORDERED: VITAMIN A10000 UNIT PO (11:29)
== END 2017-04-23 13:45 | disposition home or self-care (01) ==
LOC: D.OPS 08:26 → D.PAN 11:00 → D.OPS 11:00
PROVIDERS: Surgery
DX: L02.215 Cutaneous abscess of perineum (principal); I10 Essential (primary) hypertension; K21.9 Gastro-esophageal reflux disease without esophagitis; Z01.812 Encounter for preprocedural laboratory examination; K60.4 Rectal fistula

== ENCOUNTER 2018-07-12 08:00 | Outpatient (CLI) | payer MEDICARE ==
[2017-04-23 09:49] VITALS: BMI 33.4
[~2018-07-12 08:00] MED LIST changes: +MEDROL DOSE PACK4 MG PO; +PREDNISONE10 MG PO; +VITAMIN A10000 UNIT PO; +ZANTAC 7575 MG PO
== END 2018-07-12 09:00 | disposition home or self-care (01) ==
LOC: D.MAMMO 08:00
PROVIDERS: ATTEND Emergency Medicine
DX: Z12.31 Encounter for screening mammogram for malignant neoplasm of breast (principal)

== ENCOUNTER 2019-08-17 16:41 | Inpatient (IN) | payer MEDICARE, OTHER ==
[~2019-08-17] VITALS: Ht 177.8 cm; Wt 116.1 kg
[2019-09-02] MEDS ORDERED: ZIAC 5-6.25 MG1 TAB PO (10:03)
[2019-09-02 10:41] LABS: BASOPHILS 0.2 % (0-2); EOSINOPHILS 0.2 % (0-7); HEMATOCRIT 40.3 % (36.0-48.0); HEMOGLOBIN 12.4 g/dL (12-16); IMMATURE GRANULOCYTES 0.6 % (0-5); LYMPHOCYTES 20.6 % (15-50); MCH 25.6 pg (26.0-34.0); MCHC 30.8 g/dL (31.0-37.0); MCV 83.3 fL (80.0-100.0); MEAN PLATELET VOLUME 9.8 fL (7.4-10.4); MONOCYTES 8.7 % (2-11); NEUTROPHILS 69.7 % (40-80); PLATELET COUNT 257 10x3/uL (130-400); RBC 4.84 10x6/uL (4.00-5.40); RDW 14.4 % (11.5-14.5); WBC 10.1 10x3/uL (4.8-10.8)
[2019-09-02 10:51] LABS: ANION GAP 8.5 mmol/L (8-16); CALCIUM 8.9 mg/dL (8.5-10.1); CARBON DIOXIDE 30.6 mmol/L (21.0-32.0); CREATININE - SERUM 0.9 mg/dL (0.6-1.3); POTASSIUM - SERUM 4.1 mmol/L (3.5-5.1)
[2019-09-02 11:08] LABS: APTT 24.4 SECONDS (22.8-39.4); INR 0.86 (0.85-1.17); PROTIME 11.7 SECONDS (11.6-15.0)
[2019-09-02 12:16] LABS: BACTERIA MODERATE /hpf (NEGATIVE); BILIRUBIN NEGATIVE (NEGATIVE); GLUCOSE NEGATIVE (NEGATIVE); KETONE NEGATIVE (NEGATIVE); NITRITE NEGATIVE (NEGATIVE); RED CELLS - URINE RARE /hpf (0-5); SPECIFIC GRAVITY 1.015 (1.005-1.020); UROBILINOGEN NORMAL (NORMAL); WHITE CELLS - URINE 0-5 /hpf (NEGATIVE)
--- NOTE | 2019-09-05 10:07 | NUR ---
DANIA NOTE: DR. BOONE REQUESTING PREOP CARDIAC CLEARANCE. KAYLIN AT DR. LLAMAS'S OFFICE NOTIFIED. EKG FAXED TO OFFICE, TRANSMISSION OF FAX CONFIRMED.
[2019-09-06] VITALS (10 sets, daily range): BP systolic 113–146; BP diastolic 65–92; BMI 36.8
[2019-09-06] MEDS ORDERED: CIPRO500 MG PO (07:43)
--- NOTE | 2019-09-06 08:29 | NUR ---
0725 WARMING GOWN WORN BY PATIENT. ATTACHED TO WARM BLOWING FEATURE @ MEDIUM TEMPERATURE. Shani HUDDLESTON R.N. 0740 DR. LLAMAS CALLED & NOTIFIED PT STARTED CIPRO ON 09/05/19 INSTEAD OF 09/02/19. DR. LLAMAS STATES HE WILL RECHECK URINE ON 09/07/19. Shani HUDDLESTON R.N.
--- NOTE | 2019-09-06 09:05 | NUR ---
ANESTHESIA COMPLETING BLOCK AT THIS TIME, PT TOLERATED WELL, PT A&O X4, NAD NOTED.
--- NOTE | 2019-09-06 10:03 | NUR ---
PLASMA BLADE AND AQUAMANIS USED. SETTING PLASMA BLADE ON 08/07 AND AQUAMANIS SETTING ON 170. CAUTERY PAD LOT#[id number] EXP. 01/24/2021.
--- NOTE | 2019-09-06 12:30 | NUR ---
PATIENT TO ROOM. SATS 90-95 % ON ROOM AIR. IV INTACT. HEART RATE 45-51. NO COMPLAINTS OF PAIN. BSCDS ON AND WORKING. DRINKING ICE WATER SLOWLY. SAYS SHE WANTS TO SLEEP. DRESSING TO SHOULDER CDI. SLING AND ICE PACK ON. CALL LIGHT WITHIN REACH.
--- NOTE | 2019-09-06 12:55 | NUR ---
PATIENT HEART RATE 45 WHILE SLEEPING. SATS 88. ADDED O2 2L NC. SATS 96. IS GIVEN AND INSTRUCTED ON HOW TO USE. VERBALIZED UNDERSTANDING. REFUSED LUNCH AT THIS TIME. CALL LIGHT WITHIN REACH.
--- NOTE | 2019-09-06 13:18 | NUR ---
PATIENT HR 46. PATIENT STATED HR ALWAYS LOWER. STATED HAD STRESS TEST YESTERDAY AND PHYSICIAN TOLD HER SHE HAD A STRONG HEART. NO COMPLAINTS OR SIGNS OF DISTRESS. WHEN WOKE PATIENT HR WENT UP TO 54. WILL CONTINUE TO MONITOR. CALL LIGHT WITHIN REACH.
--- NOTE | 2019-09-06 14:42 | NUR ---
PATIENT IN BED WITH IV INTACT. NO COMPLAINTS OR SIGNS OF DISTRESS. VS STABLE. CALL LIGHT WITHIN REACH.
--- NOTE | 2019-09-06 16:38 | OP ---
PATIENT NAME: PRINCESS CHIRINOS MEDICAL RECORD: [id number] :52 LOCATION:[facility] D.1208 ADMISSION DATE:09/06/19 SURGEON: SAGE LALMAS DO DATE OF OPERATION: 09/06/2019 PROCEDURE PERFORMED: Left total shoulder arthroplasty. PREOPERATIVE DIAGNOSIS: Left shoulder osteoarthritis. POSTOPERATIVE DIAGNOSIS: Left shoulder osteoarthritis. INDICATIONS: Ms. Chirinos is a 69-year-old female who presented to my office with left shoulder pain and limited range of motion. She did not know why and I got x-rays that showed a large osteophyte on the inferior aspect of the humerus and also some severe osteoarthritis of the joint, there is little to no joint space. I informed her that a total shoulder would be a good option for her. She was okay with that and wanted to proceed forward. She was aware of the risks including infection, bleeding, damage to nerves and vessels, need for further surgery, continued pain, arthrofibrosis, need for failure of implants and signed the consent. SURGEON: Sage Llamas DO DESCRIPTION OF PROCEDURE: The patient was taken to the operative suite after given a block by anesthesia in the preoperative area, laid in the supine position, given general anesthetic and intubated. The patient was given 900 mg of clindamycin and 1 gram of TXA prior to starting. The patient was then positioned in the beach chair position. The left shoulder was then prepped and draped in sterile fashion. Timeout was performed. Everyone was in agreement with the correct side, site, patient and procedure. I then began by making an incision over the deltopectoral interval. Careful dissection was made down to the deltopectoral interval. The clavipectoral fascia was removed and the proximal centimeter of the pec was released. The long head of the bicep tendon was then tied to the stump of the pec and it had been cut and the bicep tendon was cut and that followed all the way up into the joint, releasing the rotator interval. I then tagged the subscapularis tendon and peeled it off of the lesser tuberosity. Once that was peeled off, the humeral head was exposed. The osteophytes were knocked off with the osteotome and mallet, and removed. I then put an intramedullary guide in and cut the head. Once the head was cut, I sized and the bone was strong enough to do a Simpliciti. We then put the Simpliciti pin in and punched for the Simpliciti and put cover on. I then exposed the glenoid. After releasing the subscap off the scapula anteriorly and removed the labrum as well as the long head of the biceps tendon that was left. After that was completed, we sized to be a 40 medium. A centering pin was placed and then drilled, and then peripheral screws were drilled, then trialed and fit very well and then cemented in the glenoid poly. I then exposed the humerus again and punched for the drill holes for the subscap repair and put #2 Ethibond through the lesser tuberosity and then put in the trial of the 52 x 19 head, it fit very well and had 50% shuck posteriorly and fit very well, had good range of motion. I then decided to go with that one and punched and put the nucleus in as well as the humeral head, impacted that, and it fit very well, and we then closed the subscap using Caesar Shadi stitches and tying it down and then closed the rotator interval also with [id number] with #2 Ethibond. We then irrigated the shoulder with 10% povidone-iodine and 500 mL of normal saline and then put Bonifacio and vancomycin and tobramycin powder in the shoulder, this was done by OPERATIVE REPORT [id number] PRINCESS CHIRINOS, certified nursing assistant and closed the skin with 2-0 Vicryl in an inverted interrupted fashion, 4-0 Monocryl ran on the skin and Prineo glue placed on the skin. She was then dressed with Telfa and Tegaderm, awakened, placed in a sling and taken to recovery in stable condition. Blood loss was approximately 150 mL. COMPLICATIONS: None. TRANSINT:[id number] Voice Confirmation ID: [id number] DOCUMENT ID: [id number] SAGE LLAMAS DO at 1638 CC: [id number] DICTATION DATE: 09/06/19 1104 COUNTER CLERK FARM EQUIPMENT PARTS: 09/06/19 1546 [facility] [place] IN [facility] [address] [place] [address]
--- NOTE | 2019-09-06 18:45 | NUR ---
PATIENT IN BED WITH IV INTACT. NO COMPLAINTS OR SIGNS OF DISTRESS. HAS VOIDED IN BR X 2 WITH NO PROBLEMS. SLING ON. TELEMETRY ON. BSCDS ON AND WORKING. CALL [facility] WITHIN REAch.
--- NOTE | 2019-09-06 19:30 | NUR ---
RESTING IN BED DENIES PAIN OR NEEDS AT THIS TIME, SEE SHIFT ASSESSMENT, CALL [facility] IN REACH
[2019-09-07] VITALS: BP 131/60
[2019-09-07 04:30] VITALS: BP 129/67
[2019-09-07 06:38] LABS: ALBUMIN 3.1 g/dL (3.4-5.0); ALKALINE PHOSPHATASE 58 U/L (30-120); ALT (SGPT) 24 U/L (10-68); BILIRUBIN - TOTAL 0.51 mg/dL (0.2-1.3); CALC OSMOLALITY 271 mosm/kg (275-300); CALCIUM 8.2 mg/dL (8.5-10.1); CARBON DIOXIDE 27.9 mmol/L (21.0-32.0); CHLORIDE - SERUM 99 mmol/L (98-107); CREATININE - SERUM 0.8 mg/dL (0.6-1.3); GLUCOSE 108 mg/dL (74-106); POTASSIUM - SERUM 4.3 mmol/L (3.5-5.1); PROTEIN - SERUM 5.9 g/dL (6.4-8.2); SODIUM 134 mmol/L (136-145); UREA NITROGEN 21 mg/dL (7-18); eGFR NON AFRICAN AMERICAN 75 mL/min (90-120)
[2019-09-07 07:29] LABS: BASOPHILS 0 % (0-2); EOSINOPHILS 0 % (0-7); HEMATOCRIT 36.8 % (36.0-48.0); HEMOGLOBIN 11.4 g/dL (12-16); IMMATURE GRANULOCYTES 0.5 % (0-5); MCH 25.5 pg (26.0-34.0); MCV 82.3 fL (80.0-100.0); MEAN PLATELET VOLUME 9.9 fL (7.4-10.4); MONOCYTES 10.8 % (2-11); NEUTROPHILS 78.7 % (40-80); PLATELET COUNT 232 10x3/uL (130-400); RBC 4.47 10x6/uL (4.00-5.40); RDW 14.6 % (11.5-14.5); WBC 12.5 10x3/uL (4.8-10.8)
[2019-09-07 07:57] VITALS: BP 132/64
--- NOTE | 2019-09-07 08:00 | NUR ---
PATIENT IN BED WITH IV INTACT. SITTING UP IN BED EATING. N O COMPLAINTS OR SIGNS OF DISTRESS. CALL [facility] WITHIN REACH.
[2019-09-07 08:46] VITALS: Ht 177.8 cm; Wt 116.1 kg
--- NOTE | 2019-09-07 12:00 | NUR ---
PATIENT SITTING UP IN CHAIR WITH NO COMPLAINTS OR PROBLEMS AT THIS TIME. IV INTACT. CALL [facility] WITHIN REACH.
[2019-09-07 12:14] VITALS: BP 128/68
[2019-09-07] MEDS ORDERED: oxyCODONE IR PO (14:23)
--- NOTE | 2019-09-07 16:30 | NUR ---
PATIENT RECIEVED DC INSTRUCTIONS AND PRESCRIPTION. VERBALIZED UNDERSTANDING. NO QUESTIONS AT THIS TIME. IV REMOVED WITH CATH TIP INTACT. WAITING FOR TRANSPORTATION FOR DC. CALL [facility] WITH[facility] RE[facility].
== END 2019-09-07 16:59 | disposition home or self-care (01) | DRG 483 ==
LOC: D.SDCHOLD 09-06 06:48 → D.M3 09-06 11:35
PROVIDERS: Family Medicine Adult Medicine; ADMIT Orthopaedic Surgery; ATTEND Orthopaedic Surgery
PROC: 0RRK0JZ Replacement of Left Shoulder Joint with Synthetic Substitute, Open Approach (ICD-10-PCS; principal; 2019-09-06 09:30)
DX: M19.012 Primary osteoarthritis, left shoulder (principal); N39.0 Urinary tract infection, site not specified; R00.1 Bradycardia, unspecified; I10 Essential (primary) hypertension; G89.29 Other chronic pain; M19.90 Unspecified osteoarthritis, unspecified site

== ENCOUNTER → 2019-08-17 18:16 | Outpatient (CLI) | payer MEDICARE ==
[2017-04-23 09:49] VITALS: BMI 33.4
== END | disposition home or self-care (01) ==
LOC: D.LABREF 18:16
PROVIDERS: ATTEND Orthopaedic Surgery
DX: M19.012 Primary osteoarthritis, left shoulder (principal)

== ENCOUNTER 2019-10-31 22:29 | Inpatient (IN) | payer MEDICARE, OTHER ==
[~2019-10-31] VITALS: Ht 177.8 cm; Wt 113.4 kg
[~2019-10-31 22:29] MED LIST changes: +CIPRO500 MG PO; +ZIAC 5-6.25 MG1 TAB PO; +oxyCODONE IR PO
[2019-10-31] MEDS ORDERED: DOXYCYCLINE HY100 M2 PO (22:40)
[2019-10-31] MEDS ORDERED: FUROSEMIDE20 MG PO (22:40)
[2019-10-31] MEDS ORDERED: PROVENTIL/2.5 MG/3 M INH (22:41)
[2019-11-01] MEDS ORDERED: ALBUTEROL SULF8.5 GM INH (02:50)
[2019-11-01] MEDS ORDERED: VIBRAMYCIN 100100 MG PO (02:56)
[2019-11-01] MEDS ORDERED: PERCOCET 5-3251 TAB PO (02:57)
[2019-11-01] MEDS ORDERED: BISOPROLOL-HCT1 EAC3 PO (03:03)
[2019-11-01 03:07] VITALS: BP 122/81
[2019-11-01 03:18] VITALS: BMI 35.9
[2019-11-01 04:00] VITALS: BP 122/51
[2019-11-01 08:50] VITALS: BP 116/77
[2019-11-01 20:00] VITALS: BP 136/66
[2019-11-02] VITALS: BP 138/72
[2019-11-02 10:36] VITALS: BP 125/64
[2019-11-02 12:00] VITALS: BP 113/51
[2019-11-02 16:00] VITALS: BP 132/70
[2019-11-02 20:00] VITALS: BP 116/59
[2019-11-03 04:00] VITALS: BP 138/64
--- NOTE | 2019-11-03 08:35 | MORECARE ---
CASE MANAGEMENT DISCHARGE SUMMARY PATIENT: PRINCESS CARRILLO UNIT: [id number] ADM DATE: 10/31/19 AGE: 69 : 51 SEX: F ROOM/BED: D.2128 AUTHOR: DEYANIRA SERVIN PHYSICIAN: REFERRING PHYSICIAN: RAY SULLIVAN MD DATE OF SERVICE: 11/03/19 Discharge Plan Patient Name: PRINCESS CARRILLO Facility: [facility]:[place] : 1950 Planned Disposition: Home or Self Care Anticipated Discharge Date: Discharge Date: Expected LOS: Initial Reviewer: [email or web address] Initial Review Date: 11/01/2019 Generated: 11/03/19 9:34 am Patient Name: PRINCESS CARRILLO Page 51567 at 0835 All edits/amendments must be made on the electronic document DICTATION DATE: 11/03/19833 THREAD TWISTER: GABRIELE 11/03/19833 RPT#: [id number] DC DATE: STATUS: ADM IN [facility] [address] [place] [address] END OF REPORT
--- NOTE | 2019-11-03 08:48 | MORECARE ---
CASE MANAGEMENT DISCHARGE SUMMARY PATIENT: PRINCESS CARRILLO UNIT: [id number] ADM DATE: 10/31/19 AGE: 69 : 51 SEX: F ROOM/BED: D.7723 AUTHOR: DEYANIRA SERVIN PHYSICIAN: REFERRING PHYSICIAN: RAY SULLIVAN MD DATE OF SERVICE: 11/03/19 Discharge Plan Patient Name: PRINCESS CARRILLO Facility: [facility]:[place] : 1950 Planned Disposition: Home or Self Care Anticipated Discharge Date: Discharge Date: Expected LOS: Initial Reviewer: [email or web address] Initial Review Date: 11/01/2019 Generated: 11/03/19 9:47 am Comments DCP- Discharge Planning Updated by [email or web address]: Jer Velazquez on 11/03/19 7:[address] Patient Name: PRINCESS CARRILLO Admission Status: ER Accout number: [id number] Admission Date: 10-31-2019 : 1950 Admission Diagnosis:FEVER, UNSPECIFIED Attending: RAY KELLY Current LOS: 3 Anticipated DC Date: Planned Disposition: Home or Self Care Primary Insurance: MEDICARE A & B Discharge Planning Comments: CM met with patient to complete initial dc planning assessment. CM educated patient on the CM role and verbal consent given by patient to complete assessment. CM verified patient's address, phone number, and emergency contact phone numbers. Patient lives at home alone, however, her lives nearby in another residence. There is daily contact with her spouse. At discharge patient plans to return home and feels this is a safe discharge. CM discussed availability of home health, rehab services, and medical equipment. Patient denied known discharge needs at this time. Patient stated that she is s/p shoulder surgery and will resume physical therapy per previous planned schedule. Transportation provider at discharge will be her , Carl Mauricio ([phone]) . CM will continue to follow and will assist as needed with dc plans/needs. Tunnel Elastic Operator Zigzag: Jer Velazquez DCPIA - Discharge Planning Initial Assessment Updated by [email or web address]: Jer Velazquez on 11/03/19 8:42 am * Is the patient Alert and Oriented? Yes * How many steps to enter\exit or inside your home? 0/8/0 * PCP Dr. Felix Quispe * Pharmacy [facility] [address] ([place]) * Preadmission Environment Home Alone * ADLs Independent * Equipment Other * Other Equipment Check Writer Salesperson for her shoulder * List name and contact numbers for known caregivers / representatives who currently or will assist patient after discharge: ED Pace (Spouse) [phone] * Verbal permission to speak to the caregivers and representatives has been obtained from the patient. Yes * Community resources currently utilized None * Please name any agencies selected above. n/a * Additional services required to return to the preadmission environment? No * Can the patient safely return to the preadmission environment? Yes * Has this patient been hospitalized within the prior 30 days at any hospital? No Last DP export: 11/03/19 7:35 am Patient Name: PRINCESS CARRILLO Page 53810 at 0848 All edits/amendments must be made on the electronic document DICTATION DATE: 11/03/19846 CAD DRAFTSMAN: GABRIELE 11/03/19846 RPT#: [id number] DC DATE: STATUS: ADM IN [facility] [address] [place] [address] END OF REPORT
[2019-11-03 09:32] VITALS: BP 138/74
[2019-11-03 13:55] VITALS: BP 122/59
[2019-11-03 20:00] VITALS: BP 137/53
[2019-11-04 04:00] VITALS: BP 147/73
[2019-11-04 08:34] VITALS: BP 140/74
[2019-11-04 11:44] VITALS: BP 148/72
--- NOTE | 2019-11-04 11:44 | MORECARE ---
CASE MANAGEMENT DISCHARGE SUMMARY PATIENT: PRINCESS CARRILLO UNIT: [id number] ADM DATE: 10/31/19 AGE: 69 : 51 SEX: F ROOM/BED: D.3016 AUTHOR: DEYANIRA SERVIN PHYSICIAN: REFERRING PHYSICIAN: RAY SULLIVAN MD DATE OF SERVICE: 11/04/19 Discharge Plan Patient Name: PRINCESS CARRILLO Facility: [facility]:[place] : 1950 Planned Disposition: Home or Self Care Anticipated Discharge Date: Discharge Date: Expected LOS: Initial Reviewer: [email or web address] Initial Review Date: 11/01/2019 Generated: 11/04/19 12:43 pm Comments DCP- Discharge Planning Updated by [email or web address]: Jennifer Barnes on 11/04/19 10:[address] Patient Name: PRINCESS CARRILLO Encounter No: [id number] : 1950 Primary Insurance: MEDICARE A & B Anticipated DC Date: Planned Disposition: Home or Self Care External Planned Provider: : DCP follow-up note:CM discussed availability of home health, rehab services, and medical equipment. Pt is on oxygen and may require oxygen for home use. PADMAJA signed for [facility] if oxygen is needed at home. Cm discussed the need for home health services, pt states that her home is healthy enough. States she will resume out patient physical therapy at [facility] for her left shoulder. Patient and family in agreement with discharge plan. No changes to plan. Case management will follow and assist as needed. Jennifer SHUKLA,RN,CM DCP- Discharge Planning Updated by [email or web address]: Jer Velazquez on 11/03/19 7:[address] Patient Name: PRINCESS CARRILLO Admission Status: ER Accout number: [id number] Admission Date: 10-31-2019 : 1950 Admission Diagnosis:FEVER, UNSPECIFIED Attending: RAY KELLY Current LOS: 3 Anticipated DC Date: Planned Disposition: Home or Self Care Primary Insurance: MEDICARE A & B Discharge Planning Comments: CM met with patient to complete initial dc planning assessment. CM educated patient on the CM role and verbal consent given by patient to complete assessment. CM verified patient's address, phone number, and emergency contact phone numbers. Patient lives at home alone, however, her lives nearby in another residence. There is daily contact with her spouse. At discharge patient plans to return home and feels this is a safe discharge. CM discussed availability of home health, rehab services, and medical equipment. Patient denied known discharge needs at this time. Patient stated that she is s/p shoulder surgery and will resume physical therapy per previous planned schedule. Transportation provider at discharge will be her , Carl Mauricio ([phone]) . CM will continue to follow and will assist as needed with dc plans/needs. Flexographic Press Helper: Jer Velazquez DCPIA - Discharge Planning Initial Assessment Updated by [email or web address]: Jer Velazquez on 11/03/19 8:42 am * Is the patient Alert and Oriented? Yes * How many steps to enter\exit or inside your home? * PCP Dr. Felix Quispe * Pharmacy [facility] on [address] [facility]) * Preadmission Environment Home Alone * ADLs Independent * Equipment Other * Other Equipment Commercial Reporter for her shoulder * List name and contact numbers for known caregivers / representatives who currently or will assist patient after discharge: ED Hang (Spouse) [phone] * Verbal permission to speak to the caregivers and representatives has been obtained from the patient. Yes * Community resources currently utilized None * Please name any agencies selected above. n/a * Additional services required to return to the preadmission environment? No * Can the patient safely return to the preadmission environment? Yes * Has this patient been hospitalized within the prior 30 days at any hospital? No Last DP export: 11/03/19 7:48 am Patient Name: PRINCESS CARRILLO Page 32644 at 1144 All edits/amendments must be made on the electronic document DICTATION DATE: 11/04/19 1143 HEDIS REVIEW NURSE: GABRIELE 11/04/19 1143 RPT#: [id number] DC DATE: STATUS: ADM IN [facility] [address] [place] [address] END OF REPORT
--- NOTE | 2019-11-04 12:03 | MORECARE ---
CASE MANAGEMENT DISCHARGE SUMMARY PATIENT: PRINCESS CARRILLO UNIT: [id number] ADM DATE: 10/31/19 AGE: 69 : 51 SEX: F ROOM/BED: D.4950 AUTHOR: DEYANIRA SERVIN PHYSICIAN: REFERRING PHYSICIAN: RAY SULLIVAN MD DATE OF SERVICE: 11/04/19 Discharge Plan Patient Name: PRINCESS CARRILLO Facility: [facility]:[place] : 1950 Planned Disposition: Home or Self Care Anticipated Discharge Date: Discharge Date: Expected LOS: Initial Reviewer: [email or web address] Initial Review Date: 11/01/2019 Generated: 11/04/19 1:03 pm Comments DCP- Discharge Planning Updated by [email or web address]: Jennifer Barnes on 11/04/19 10:[address] Patient Name: PRINCESS CARRILLO Encounter No: [id number] : 1950 Primary Insurance: MEDICARE A & B Anticipated DC Date: Planned Disposition: Home or Self Care External Planned Provider: : DCP follow-up note:CM discussed availability of home health, rehab services, and medical equipment. Pt is on oxygen and may require oxygen for home use. PADMAJA signed for [facility] if oxygen is needed at home. Cm discussed the need for home health services, pt states that her home is healthy enough. States she will resume out patient physical therapy at [facility] for her left shoulder. Patient and family in agreement with discharge plan. No changes to plan. Case management will follow and assist as needed. Jennifer Barnes MSN,RN,CM DCP- Discharge Planning Updated by [email or web address]: Jer Velazquez on 11/03/19 7:[address] Patient Name: PRINCESS ACRRILLO Admission Status: ER Accout number: [id number] Admission Date: 10-31-2019 : 1950 Admission Diagnosis:FEVER, UNSPECIFIED Attending: RAY KELLY Current LOS: 3 Anticipated DC Date: Planned Disposition: Home or Self Care Primary Insurance: MEDICARE A & B Discharge Planning Comments: CM met with patient to complete initial dc planning assessment. CM educated patient on the CM role and verbal consent given by patient to complete assessment. CM verified patient's address, phone number, and emergency contact phone numbers. Patient lives at home alone, however, her lives nearby in another residence. There is daily contact with her spouse. At discharge patient plans to return home and feels this is a safe discharge. CM discussed availability of home health, rehab services, and medical equipment. Patient denied known discharge needs at this time. Patient stated that she is s/p shoulder surgery and will resume physical therapy per previous planned schedule. Transportation provider at discharge will be her , Carl Mauricio ([phone]) . CM will continue to follow and will assist as needed with dc plans/needs. Executive Vice President: Jer Velazquez DCPIA - Discharge Planning Initial Assessment Updated by [email or web address]: Jer Velazquez on 11/03/19 8:42 am * Is the patient Alert and Oriented? Yes * How many steps to enter\exit or inside your home? * PCP Dr. Felix Quispe * Pharmacy [facility] on [address] ([place]) * Preadmission Environment Home Alone * ADLs Independent * Equipment Other * Other Equipment Sephora Operations Consultant for her shoulder * List name and contact numbers for known caregivers / representatives who currently or will assist patient after discharge: CARL Mauricio (Spouse) [phone] * Verbal permission to speak to the caregivers and representatives has been obtained from the patient. Yes * Community resources currently utilized None * Please name any agencies selected above. n/a * Additional services required to return to the preadmission environment? No * Can the patient safely return to the preadmission environment? Yes * Has this patient been hospitalized within the prior 30 days at any hospital? No Coverage Notice Reviewer: [email or web address] Gerson Barnes Notice Issued Date-Time: 11/04/2019 11:30 Notice Type: Patient Choice Letter Notice Delivered To: Patient Relationship to Patient: Accident Report Clerk Name: Delivery Method: HAND - Hand Delivered Gayla Days: Prior Verbal Notification: Recipient Understood Notice: Yes Recipient Signature: Yes Med Rec Note Co-signed by Attending: Coverage Notice Comment: [facility] for oxygen. Last DP export: 11/04/19 10:43 am Patient Name: PRINCESS CARRILLO Page 74588 at 1203 All edits/amendments must be made on the electronic document DICTATION DATE: 11/04/191202 BUFFING MACHINE TENDER: GABRIELE 11/04/191202 RPT#: [id number] DC DATE: STATUS: ADM IN [facility] [address] [place] [address] END OF REPORT
[2019-11-04 12:57] VITALS: Ht 177.8 cm; Wt 113.4 kg
[2019-11-04 16:01] VITALS: BP 147/75
--- NOTE | 2019-11-04 16:11 | MORECARE ---
CASE MANAGEMENT DISCHARGE SUMMARY PATIENT: PRINCESS CARRILLO UNIT: [id number] ADM DATE: 10/31/19 AGE: 69 : 52 SEX: F ROOM/BED: D.3573 AUTHOR: DEYANIRA SERVIN PHYSICIAN: REFERRING PHYSICIAN: RAY SULLIVAN MD DATE OF SERVICE: 11/04/19 Discharge Plan Patient Name: PRINCESS CARRILLO Facility: [facility]:[place] : 1950 Planned Disposition: Home or Self Care Anticipated Discharge Date: Discharge Date: Expected LOS: Initial Reviewer: [email or web address] Initial Review Date: 11/01/2019 Generated: 11/04/19 5:10 pm Comments DCP- Discharge Planning Updated by [email or web address]: Jennifer Barnes on 11/04/19 10:[address] Patient Name: PRINCESS CARRILLO Encounter No: [id number] : 1950 Primary Insurance: MEDICARE A & B Anticipated DC Date: Planned Disposition: Home or Self Care External Planned Provider: : DCP follow-up note:CM discussed availability of home health, rehab services, and medical equipment. Pt is on oxygen and may require oxygen for home use. PADMAJA signed for [facility] if oxygen is needed at home. Cm discussed the need for home health services, pt states that her home is healthy enough. States she will resume out patient physical therapy at [facility] for her left shoulder. Patient and family in agreement with discharge plan. No changes to plan. Case management will follow and assist as needed. Jennifer SHUKLA,RN,CM DCP- Discharge Planning Updated by [email or web address]: Jer Velazquez on 11/03/19 7:[address] Patient Name: PRINCESS CARRILLO Admission Status: ER Accout number: [id number] Admission Date: 10-31-2019 : 1950 Admission Diagnosis:FEVER, UNSPECIFIED Attending: RAY KELLY Current LOS: 3 Anticipated DC Date: Planned Disposition: Home or Self Care Primary Insurance: MEDICARE A & B Discharge Planning Comments: CM met with patient to complete initial dc planning assessment. CM educated patient on the CM role and verbal consent given by patient to complete assessment. CM verified patient's address, phone number, and emergency contact phone numbers. Patient lives at home alone, however, her lives nearby in another residence. There is daily contact with her spouse. At discharge patient plans to return home and feels this is a safe discharge. CM discussed availability of home health, rehab services, and medical equipment. Patient denied known discharge needs at this time. Patient stated that she is s/p shoulder surgery and will resume physical therapy per previous planned schedule. Transportation provider at discharge will be her , Carl Mauricio ([phone]) . CM will continue to follow and will assist as needed with dc plans/needs. Associate Director: Jer Velazquez DCPIA - Discharge Planning Initial Assessment Updated by [email or web address]: Jer Velazquez on 11/03/19 8:42 am * Is the patient Alert and Oriented? Yes * How many steps to enter\exit or inside your home? * PCP Dr. Felix Quispe * Pharmacy [facility] on [address] ([place]) * Preadmission Environment Home Alone * ADLs Independent * Equipment Other * Other Equipment Inspector Line for her shoulder * List name and contact numbers for known caregivers / representatives who currently or will assist patient after discharge: CARL Hang (Spouse) [phone] * Verbal permission to speak to the caregivers and representatives has been obtained from the patient. Yes * Community resources currently utilized None * Please name any agencies selected above. n/a * Additional services required to return to the preadmission environment? No * Can the patient safely return to the preadmission environment? Yes * Has this patient been hospitalized within the prior 30 days at any hospital? No Coverage Notice Reviewer: [email or web address] Gerson Barnes Notice Issued Date-Time: 11/04/2019 11:30 Notice Type: Patient Choice Letter Notice Delivered To: Patient Relationship to Patient: Carpenter Inspector Name: Delivery Method: HAND - Hand Delivered Gayla Days: Prior Verbal Notification: Recipient Understood Notice: Yes Recipient Signature: Yes Med Rec Note Co-signed by Attending: Coverage Notice Comment: [facility] for oxygen. Last DP export: 11/04/19 11:03 am Patient Name: PRINCESS CARRILLO Page 33694 at 1611 All edits/amendments must be made on the electronic document DICTATION DATE: 11/04/191609 SOCIAL SCIENCE TEACHER: GARBIELE 11/04/191609 RPT#: [id number] DC DATE: STATUS: ADM IN [facility] [address] [place] [address] END OF REPORT
[2019-11-04 22:24] VITALS: BP 173/82
[2019-11-05 00:24] VITALS: BP 149/74
[2019-11-05 07:00] VITALS: BP 153/68
[2019-11-05 11:38] VITALS: BP 131/63
[2019-11-05 15:34] VITALS: BP 141/71
[2019-11-05 20:51] VITALS: BP 154/87
[2019-11-06 00:58] VITALS: BP 159/70
[2019-11-06 04:45] VITALS: BP 151/84
[2019-11-06 08:00] VITALS: BP 146/83
[2019-11-06] MEDS ORDERED: VIBRAMYCIN 100100 MG PO ×2 (11:48→13:58)
[2019-11-06] MEDS ORDERED: OMNICEF300 MG PO (11:49)
[2019-11-06] MEDS ORDERED: BENICAR20 MG PO (11:50)
[2019-11-06] MEDS ORDERED: ELIQUIS5 MG PO (11:53)
[2019-11-06 12:00] VITALS: BP 153/78
--- NOTE | 2019-11-06 13:01 | MORECARE ---
CASE MANAGEMENT DISCHARGE SUMMARY PATIENT: PRINCESS CARRILLO UNIT: [id number] ADM DATE: 10/31/19 AGE: 69 : 52 SEX: F ROOM/BED: D.7660 AUTHOR: DEYANIRA SERVIN PHYSICIAN: REFERRING PHYSICIAN: RYA SULLIVAN MD DATE OF SERVICE: 11/06/19 Discharge Plan Patient Name: PRINCESS CARRILLO Facility: [facility]:[place] : 1950 Planned Disposition: Home or Self Care Anticipated Discharge Date: Discharge Date: Expected LOS: Initial Reviewer: [email or web address] Initial Review Date: 11/01/2019 Generated: 11/06/19 2:00 pm Comments DCP- Discharge Planning Updated by [email or web address]: Jennifer Barnes on 11/06/19 11:[address] Patient Name: PRINCESS CARRILLO Encounter No: [id number] : 1950 Primary Insurance: MEDICARE A & B Anticipated DC Date: Planned Disposition: Home or Self Care External Planned Provider: : DCP follow-up note: CM met with patient to discuss final dc plan. Pt is on continuous o2 at 1 l/min abd requests home oxygen. A walk test was performed and pt oxygen saturation level was above 95% during exertion. DC imm delivered, signed by patient. CM provided pt with original, and a copy was placed on the chart. Patient and family in agreement with discharge plan. No changes to plan. Case management will follow and assist as needed. Jennifer Barnes msn,rn,cm DCP- Discharge Planning Updated by [email or web address]: Jennifer Barnes on 11/04/19 10:[address] Patient Name: PRINCESS CARRILLO Encounter No: [id number] : 1950 Primary Insurance: MEDICARE A & B Anticipated DC Date: Planned Disposition: Home or Self Care External Planned Provider: : DCP follow-up note:CM discussed availability of home health, rehab services, and medical equipment. Pt is on oxygen and may require oxygen for home use. PADMAJA signed for [facility] if oxygen is needed at home. Cm discussed the need for home health services, pt states that her home is healthy enough. States she will resume out patient physical therapy at [facility] for her left shoulder. Patient and family in agreement with discharge plan. No changes to plan. Case management will follow and assist as needed. Jennifer Barnes MSN,RN,CM DCP- Discharge Planning Updated by [email or web address]: Jer Velazquez on 11/03/19 7:[address] Patient Name: PRINCESS CARRILLO Admission Status: ER Accout number: [id number] Admission Date: 10-31-2019 : 1950 Admission Diagnosis:FEVER, UNSPECIFIED Attending: RAY KELLY Current LOS: 3 Anticipated DC Date: Planned Disposition: Home or Self Care Primary Insurance: MEDICARE A & B Discharge Planning Comments: CM met with patient to complete initial dc planning assessment. CM educated patient on the CM role and verbal consent given by patient to complete assessment. CM verified patient's address, phone number, and emergency contact phone numbers. Patient lives at home alone, however, her lives nearby in another residence. There is daily contact with her spouse. At discharge patient plans to return home and feels this is a safe discharge. CM discussed availability of home health, rehab services, and medical equipment. Patient denied known discharge needs at this time. Patient stated that she is s/p shoulder surgery and will resume physical therapy per previous planned schedule. Transportation provider at discharge will be her , Carl Mauricio ([phone]) . CM will continue to follow and will assist as needed with dc plans/needs. Environmental Science Instructor: Jer Velazquez DCPIA - Discharge Planning Initial Assessment Updated by [email or web address]: Jer Velazquez on 11/03/19 8:42 am * Is the patient Alert and Oriented? Yes * How many steps to enter\exit or inside your home? 0 * PCP Dr. Felix Quispe * Pharmacy [facility] [address] ([place]) * Preadmission Environment Home Alone * ADLs Independent * Equipment Other * Other Equipment Clay Pigeon Loader for her shoulder * List name and contact numbers for known caregivers / representatives who currently or will assist patient after discharge: CARL Mauricio (Spouse) [phone] * Verbal permission to speak to the caregivers and representatives has been obtained from the patient. Yes * Community resources currently utilized None * Please name any agencies selected above. n/a * Additional services required to return to the preadmission environment? No * Can the patient safely return to the preadmission environment? Yes * Has this patient been hospitalized within the prior 30 days at any hospital? No Coverage Notice Reviewer: [id number] Gerson Barnes Notice Issued Date-Time: 11/04/2019 11:30 Notice Type: Patient Choice Letter Notice Delivered To: Patient Relationship to Patient: Avionics Mechanic Name: Delivery Method: HAND - Hand Delivered Gayla Days: Prior Verbal Notification: Recipient Understood Notice: Yes Recipient Signature: Yes Med Rec Note Co-signed by Attending: Coverage Notice Comment: Joya for oxygen. Reviewer: [email or web address] Gerson Crowa Cameron Notice Issued Date-Time: 11/06/2019 12:25 Notice Type: IM Discharge Notice Notice Delivered To: Patient Relationship to Patient: Avionics Mechanic Name: Delivery Method: HAND - Hand Delivered Gayla Days: Prior Verbal Notification: Recipient Understood Notice: Yes Recipient Signature: Yes Med Rec Note Co-signed by Attending: Coverage Notice Comment: dc imm delivered Last DP export: 11/04/19 3:11 pm Patient Name: PRINCESS CARRILLO Page [id number] at 1301 All edits/amendments must be made on the electronic document DICTATION DATE: 11/06/19 1300 GRINDING ROOM SUPERVISOR: GABRIELE 11/06/19 1300 RPT#: [id number] DC DATE: STATUS: ADM IN [facility] [address] [place] [address] END OF REPORT
== END 2019-11-06 14:06 | disposition home or self-care (01) | DRG 871 ==
LOC: D.ER 22:29 → D.M2 23:56
PROVIDERS: ADMIT Family Medicine; ATTEND Family Medicine
DX: A41.9 Sepsis, unspecified organism (principal); J18.9 Pneumonia, unspecified organism; I26.99 Other pulmonary embolism without acute cor pulmonale; J98.11 Atelectasis; I50.30 Unspecified diastolic (congestive) heart failure; I82.432 Acute embolism and thrombosis of left popliteal vein; I82.532 Chronic embolism and thrombosis of left popliteal vein; I11.0 Hypertensive heart disease with heart failure; E87.6 Hypokalemia; E66.9 Obesity, unspecified; Z68.35 Body mass index [BMI] 35.0-35.9, adult; Z87.891 Personal history of nicotine dependence

== ENCOUNTER → 2019-11-30 18:32 | Outpatient (CLI) | payer MEDICARE, OTHER ==
[2019-11-04 12:57] VITALS: BMI 35.8
[~2019-11-30 18:32] MED LIST changes: +ALBUTEROL SULF8.5 GM INH; +BENICAR20 MG PO; +BISOPROLOL-HCT1 EAC3 PO; +DOXYCYCLINE HY100 M2 PO; +ELIQUIS5 MG PO; +FUROSEMIDE20 MG PO; +OMNICEF300 MG PO; +PERCOCET 5-3251 TAB PO; +PROVENTIL/2.5 MG/3 M INH; +VIBRAMYCIN 100100 MG PO
== END | disposition home or self-care (01) ==
LOC: D.LABREF 18:32
PROVIDERS: ATTEND Orthopaedic Surgery
DX: M17.11 Unilateral primary osteoarthritis, right knee (principal)

== ENCOUNTER 2020-05-08 15:18 | Observation (INO) | payer MEDICARE, OTHER ==
[~2020-05-08] VITALS: Ht 177.8 cm; Wt 120.5 kg
[2020-06-12] MEDS ORDERED: BISOPROLOL-HCT1 EAC3 PO (13:49)
[2020-06-12] MEDS ORDERED: ASPIRIN325 MG PO (13:50)
[2020-06-13 12:48] LABS: BILIRUBIN NEGATIVE (NEGATIVE); KETONE NEGATIVE (NEGATIVE); NITRITE NEGATIVE (NEGATIVE); UROBILINOGEN NORMAL mg/dL (< 2)
[2020-06-13 13:21] LABS: BASOPHILS 0.5 % (0-2); HEMATOCRIT 42.6 % (36.0-48.0); HEMOGLOBIN 13.2 g/dL (12-16); IMMATURE GRANULOCYTES 0.5 % (0-5); LYMPHOCYTE ABS# 2.27 10x3/uL (1.18-3.74); LYMPHOCYTES 24.3 % (15-50); MCH 24.7 pg (26.0-34.0); MCV 79.8 fL (80.0-100.0); MEAN PLATELET VOLUME 10.3 fL (7.4-10.4); MONOCYTES 8.7 % (2-11); NEUTROPHIL ABS# 6.06 10x3/uL (1.56-6.13); PLATELET COUNT 296 10x3/uL (130-400); RBC 5.34 10x6/uL (4.00-5.40); WBC 9.3 10x3/uL (4.8-10.8)
[2020-06-13 13:25] LABS: ANION GAP 11.9 mmol/L (8-16); CALCIUM 9.4 mg/dL (8.5-10.1); CARBON DIOXIDE 29.1 mmol/L (21.0-32.0); CREATININE - SERUM 0.9 mg/dL (0.6-1.3)
[2020-06-13 13:48] LABS: APTT 25.7 SECONDS (22.8-39.4); INR 1.03 (0.85-1.17); PROTIME 12.5 SECONDS (11.6-15.0)
[2020-06-19] VITALS (11 sets, daily range): BP systolic 98–167; BP diastolic 50–94; Ht 177.8 cm; Wt 120.5 kg
--- NOTE | 2020-06-19 14:52 | NUR ---
CARE TO MICHAEL DEMPSEY RN @[id number]
--- NOTE | 2020-06-19 15:50 | NUR ---
RECEIVED TO ROOM FROM OR BY PACU STAFF. PULSE 2+, VSS.
--- NOTE | 2020-06-19 19:16 | MORECARE ---
CASE MANAGEMENT DISCHARGE SUMMARY PATIENT: PRINCESS CARRILLO UNIT: [id number] ADM DATE: 06/19/20 AGE: 70 : 51 SEX: F ROOM/BED: D.1207 AUTHOR: DEYANIRA SERVIN PHYSICIAN: REFERRING PHYSICIAN: JASIEL LLAMAS DO DATE OF SERVICE: 06/19/20 Case Management Discharge Planning Summary COMMENTS ENTERED DATE: 06/19/20 17:08 CT COMMENT TYPE: Discharge Planning REVIEWER: Jer LATHAM delivered, explained, signed by the patient, and placed in chart. Signed form also left with the patient. CM will continue to follow and will assist as needed with dc plans/needs. DCP REVIEW SUMMARY ANTICIPATED D/C DATE: EXPECTED LOS : CASE STATUS: DCP Initiated INITIAL REVIEW: 06/19/2020 INITIAL REVIEWER: Jer Velazquez FINAL DISCHARGE DISPOSITION: : FINAL REVIEWER: FINAL REVIEW DATE: DCP Focus Questions & Answers DCP Evaluation QUESTION: ANSWER Patient and/or caregiver agree upon recommended discharge plan? : Yes Family / Caregiver's ability to cope with chronic illness: : a. Adequate (ability to meet patient's medical needs, ensures patient attends medical appts.) Patient's current cognitive status: : *Oriented to person, place, situation, time and present Patient's ability to cope with chronic illness : d. No chronic illness Patient gives permission to discuss discharge plans with: (name, relationship and number) : , Carl Mauricio, Does the patient have the ability to pay for or attain post discharge needs / services? : Yes Functional screen assessment: : Basic needs can adequately be met by self Family / Caregiver's ability to cope with chronic illness: : a. Adequate (ability to meet patient's medical needs, ensures patient attends medical appts.) Physical Status: : Independent with ADL's Equipment needed for post hospitalization: : None Is there a likelihood that the patient will require additional services to return to the preadmission environment? : Yes Living Arrangements: : Home with Spouse/Significant Other Patient with capacity for self-care or can be cared for in same environment as prior to hospitalization? : Yes Baseline cognitive status: : *Oriented to person, place, situation, time and present Physical environment modification needed / anticipated for discharge: : No Medication Management: : Patient states can read and understand medication labels Medication Management: : Patient states can afford medications Pharmacy name(s): : [facility] Does Patient have transportation to get home and to follow-up medical appointments when discharged from the hospital? : Yes Would patient like to participate in any Care Coordination programs (if applicable): : Not applicable Does the patient have electricity at home? : Yes Does the patient have running water in their house? : Yes Equipment in use: : Walker - Rolling Other Equipment comments: : CPM Mental health screen: : No mental health history DCP Re-evaluation QUESTION: ANSWER Would patient like to participate in any Care Coordination programs (if applicable): : Not applicable PATIENT: PRINCESS CARRILLO ENCOUNTER: [id number] MEDICAL RECORD#: [id number] ADMISSION DATE: 06/19/2020 DISCHARGE DATE: ATTENDING MD: JASIEL GALLAGHER : AGE: 70 MARITAL STATUS: M DC PLAN ID: [id number] FACILITY: [facility] PRINTED ON: 06/19/20 19:16 CT All edits/amendments must be made on the electronic document DICTATION DATE: 06/19/201915 SCALE MANAGER: GABRIELE 06/19/201915 RPT#: [id number] DC DATE: STATUS: ADM IN [facility] [address] [place] [address] END OF REPORT
--- NOTE | 2020-06-19 19:20 | NUR ---
PT AWAKE, LOOKING AT CELL PHONE, INFORMED PT THAT I WILL BE BACK SHORTLY TO DO ASSESSMENT, PT VERBALIZES UNDERSTANDING, DENIES NEEDS AT THIS TIME
--- NOTE | 2020-06-19 19:26 | MORECARE ---
CASE MANAGEMENT DISCHARGE SUMMARY PATIENT: PRINCESS CARRILLO UNIT: [id number] ADM DATE: 06/19/20 AGE: 70 : 51 SEX: F ROOM/BED: D.1207 AUTHOR: GARETH,DEYANIRA PHYSICIAN: REFERRING PHYSICIAN: JASIEL LLAMAS DO DATE OF SERVICE: 06/19/20 Case Management Discharge Planning Summary COMMENTS ENTERED DATE: 06/19/20 19:21 CT COMMENT TYPE: Discharge Planning REVIEWER: Jer Velazquez [facility]. CM met with patient to complete DC plan and to evaluate needs. Patient lives independently with her , Carl Mauricio, . Patient stated that her home is safe and has electricity and running water. Patient stated that she has no problems paying for medications and she fills her medications at [facility]. Patient stated that her primary care physician is Dr. Quispe. At discharge, the patient plans to return home and feels this is a safe discharge. CM discussed availability of home health, rehab services, and medical equipment. Patient declined HHS, SNF, IPR, and DME. Patient stated that she would like have outpatient therapy with [facility]. Patient stated that she has a walker and CPM. Clinical Documents faxed to [facility]. PADMAJA signed and placed on chart. Patient voiced no other needs at this time and is satisfied with DC plan. Transportation provider at discharge will be with her Ed. NOA delivered, explained, signed by the patient, and placed in chart. Signed form also left with the patient. CM will continue to follow and will assist as needed with dc plans/needs. ENTERED DATE: 06/19/20 17:08 CT COMMENT TYPE: Discharge Planning REVIEWER: Jer LATHAM delivered, explained, signed by the patient, and placed in chart. Signed form also left with the patient. CM will continue to follow and will assist as needed with dc plans/needs. DCP REVIEW SUMMARY ANTICIPATED D/C DATE: EXPECTED LOS : CASE STATUS: DCP Initiated INITIAL REVIEW: 06/19/2020 INITIAL REVIEWER: Jer Velazquez FINAL DISCHARGE DISPOSITION: : FINAL REVIEWER: FINAL REVIEW DATE: DCP Focus Questions & Answers DCP Evaluation QUESTION: ANSWER Patient and/or caregiver agree upon recommended discharge plan? : Yes Family / Caregiver's ability to cope with chronic illness: : a. Adequate (ability to meet patient's medical needs, ensures patient attends medical appts.) Patient's current cognitive status: : *Oriented to person, place, situation, time and present Patient's ability to cope with chronic illness : d. No chronic illness Patient gives permission to discuss discharge plans with: (name, relationship and number) : , Ed Pace, Does the patient have the ability to pay for or attain post discharge needs / services? : Yes Functional screen assessment: : Basic needs can adequately be met by self Family / Caregiver's ability to cope with chronic illness: : a. Adequate (ability to meet patient's medical needs, ensures patient attends medical appts.) Physical Status: : Independent with ADL's Equipment needed for post hospitalization: : None Is there a likelihood that the patient will require additional services to return to the preadmission environment? : Yes Living Arrangements: : Home with Spouse/Significant Other Patient with capacity for self-care or can be cared for in same environment as prior to hospitalization? : Yes Baseline cognitive status: : *Oriented to person, place, situation, time and present Physical environment modification needed / anticipated for discharge: : No Medication Management: : Patient states can read and understand medication labels Medication Management: : Patient states can afford medications Pharmacy name(s): : [facility] Does Patient have transportation to get home and to follow-up medical appointments when discharged from the hospital? : Yes Would patient like to participate in any Care Coordination programs (if applicable): : Not applicable Does the patient have electricity at home? : Yes Does the patient have running water in their house? : Yes Equipment in use: : Walker - Rolling Other Equipment comments: : CPM Mental health screen: : No mental health history DCP Re-evaluation QUESTION: ANSWER Would patient like to participate in any Care Coordination programs (if applicable): : Not applicable PATIENT: PRINCESS CARRILLO ENCOUNTER: [id number] MEDICAL RECORD#: [id number] ADMISSION DATE: 06/19/2020 DISCHARGE DATE: ATTENDING MD: JASIEL GALLAGHER : AGE: 70 MARITAL STATUS: M DC PLAN ID: [id number] FACILITY: [facility] PRINTED ON: 06/19/20 19:26 CT All edits/amendments must be made on the electronic document DICTATION DATE: 06/19/201925 MANAGER: GABRIELE 06/19/201925 RPT#: [id number] DC DATE: STATUS: ADM IN [facility] [address] [place] [address] END OF REPORT
--- NOTE | 2020-06-19 20:00 | NUR ---
ASSESSMENT PER FLOW SHEET, VS OBTAINED, IV IN RIGHT HAND INTACT WITH NO REDNESS OR EDEMA INFUSING VIA PUMP PER MD ORDERS, SEE EMAR, RIGHT KNEE IN CPM AT THIS TIME, DRESSING CDI WITH NO DRAINAGE NOTED, FRESH ICE PACK TO KNEE, MAITE HOSE AND SCD'S ON, WORKING PROPERLY, PT DENIES FLATUS, NO BM, AND REPORTS VOIDING EARLIER WITH NO DIFFICULTY, PT RATES PAIN 0/10, FRESH H20 SERVED, DENIES FURTHER NEEDS, BED IN LOW POSITION, SIDE RAILS X 2, CALL LIGHT IN REACH
--- NOTE | 2020-06-19 21:47 | NUR ---
PT RESTING WITH EYES CLOSED, AROUSES TO SOFT VERBAL STIMULATION, ADM 2100 MEDS PER MD ORDERS, PT INFORMED OF BP, REQUESTS TO WAIT AND TAKE LATER, INFORMED PT THAT I WILL RECHECK VS AROUND MIDNIGHT, REQUESTS TO TAKE IT THEN IF NEEDED, CPM OFF, PT UP TO BR WITH WALKER, GAIT STEADY, VOIDED WITH NO DIFFICULTY, PT BACK TO BED, WASH CLOTH PROVIDED, PT BRUSHED TEETH, DENIES FURTHER NEEDS, BED IN LOW POSITION, SIDE RAILS X 2, CALL LIGHT IN REACH
--- NOTE | 2020-06-19 22:30 | NUR ---
PT AWAKE, PLAYING ON CELL PHONE, DENIES NEEDS AT THIS TIME
--- NOTE | 2020-06-19 23:13 | NUR ---
PT RESTING WITH EYES CLOSED, AROUSES TO SOFT VERBAL STIMULATION, VS OBTAINED, ANCEF HUNG IVPB PER MD ORDERS, SEE EMAR, PT DENIES NEEDS, BED IN LOW POSITION, SIDE RAILS X 2, CALL LIGHT IN REACH
--- NOTE | 2020-06-20 00:10 | NUR ---
PT RESTING WITH EYES CLOSED, RESP QUIET, NO DISTRESS NOTED, LEFT UNDISTURBED AT THIS TIME
--- NOTE | 2020-06-20 02:25 | NUR ---
PT RESTING WITH EYES CLOSED, RESP QUIET, NO DISTRESS NOTED, LEFT UNDISTURBED AT THIS TIME
[2020-06-20 04:35] VITALS: BP 112/56
--- NOTE | 2020-06-20 04:35 | NUR ---
PT RESTING WITH EYES CLOSED, AROUSES TO SOFT VERBAL STIMULATION, VS OBTAINED, DENIES NEED FOR PAIN MED AT THIS TIME, BED IN LOW POSITION, SIDE RAILS X 2, CALL LIGHT IN REACH
--- NOTE | 2020-06-20 05:38 | NUR ---
PT RESTING WITH EYES CLOSED, AROUSES TO SOFT VERBAL STIMULATION, ADM PAIN MED PER MD ORDERS, SEE EMAR, PT PLACED ON CPM AT THIS TIME, FRESH H20 SERVED, DENIES FURTHER NEEDS
--- NOTE | 2020-06-20 06:49 | OP ---
PATIENT NAME: PRINCESS CHIRINOS MEDICAL RECORD: [id number] :52 LOCATION:D.Juan D.1207 ADMISSION DATE:06/19/20 SURGEON: SAGE LLAMAS DO DATE OF OPERATION: 06/19/2020 PROCEDURE PERFORMED: Right total knee arthroplasty. PREOPERATIVE DIAGNOSIS: Right knee osteoarthritis. POSTOPERATIVE DIAGNOSIS: Right knee osteoarthritis. INDICATIONS: Ms. Chirinos is a 70-year-old female who has had a right knee pain for quite some time. She knew she needed her knee replaced. She has tried all manner of nonoperative treatment to no avail and she wanted something done surgically. She is aware of the risks including infection, bleeding, fracture, damage to nerves or vessels, need for further surgery, failure of implants, allergies, blood clots, and even , and she signed the consent. SURGEON: Sage Llamas DO DESCRIPTION OF PROCEDURE: The patient was taken to the operative suite and after given a block by anesthesia in the preoperative area, laid in the supine position, given general anesthetic and LMA was placed. She was given 2 grams of Ancef, 80 mg of gentamicin and a gram of TXA. The right lower extremity was then prepped and draped in sterile fashion. A timeout was performed, everyone was in agreement with the correct site, side, patient, and procedure. I then began by marking out the anterior incision and covered in Ioban. I used a 10 blade scalpel to make careful dissection down to the capsule, used fresh 10 blade scalpel, did a medial parapatellar approach, coagulating any bleeding with the Aquamantys as we went through. I then everted the patella, removed part of the fat pad and milled down the patella and drilled it for a 32 patellar implant. I then flexed the knee, removed the ACL and drilled into femoral canal and put in the intramedullary guide, cut the distal femur off the guide, I then exposed the proximal tibia and cut it off the low side, which was the posterior aspect of the lateral tibial plateau which had slipped down. I then had to recut the tibia, so I put 10 extension block in, bringing 10 extension after removing the cut tibia. I had removed the menisci as well medial and lateral, coagulated any bleeding. The 10 extension block then fit well after I had recut the tibia and then I flexed the knee up and sized the femur to be 11 at first, then put 4-in-1 cutting block on and did not cut enough up the anterior aspect of the femur, so it went down to a 10. The 10 cut it well. I then cut through the other chamfer cuts and posterior cut. I then removed the bone and exposed the tibia, sized it to be an E, pinned it in place and then put the trial femur on and put a 10 and a 12 poly, and 12 poly fit well and ranged the knee very well. I then removed the trial poly, drilled the lugholes for the femur and reamed and punched the tibia and put extra holes in the tibia for the cement. I then irrigated the whole knee out and mixed the cement, put on the implant in the tibia, impacted the implant onto the tibia, removed the excess cement, then impacted the femur on, then put a 12 trial poly in between, brought the knee to an extension and then cemented the patella as well putting cement on the patella and on the implants, squeezed it with a squeezer on until the cement had dried. Removed the excess cement. I then irrigated with 10% povidone-iodine, 500 mL of normal saline solution, let it sit for a couple of minutes, irrigated it out, then injected the joint cocktail around the periosteum of the femur and into the tibia as well and in the quad muscles. Once the cement had dried, I trialed the OPERATIVE REPORT [id number] PRINCESS CHIRINOS 12 poly, it fit very well. Had good stability in varus and valgus stress and in flexion, extension and mid flexion. I then put the 12 medial congruent bearing poly in and it fit very well on the knee, had very good motion and good stability in varus and valgus stress and in flexion, extension, mid flexion. I then irrigated one more time, put in the Bonifacio, vancomycin and tobramycin powder. I then closed the capsule with #1 Vicryl in a [id number] fashion. Then, Maikel He, certified surgical tech, closed over that with a #1 Stratafix in a running stitch. I then closed the skin with 2-0 Vicryl in inverted interrupted fashion, put on a ZipLine, Adaptic, 4 x 4, ABD, Webril, Go wrap, MAITE hose stocking for the knee. She was then awakened and taken to recovery in stable condition. Blood loss approximately 250 mL. COMPLICATIONS: None. TRANSINT:[id number] Voice Confirmation ID: [id number] DOCUMENT ID: [id number] SAGE LLAMAS DO at 0649 CC: [id number] DICTATION DATE: 06/19/20 140 MANAGER TAX: 06/19/202206 ADM IN [facility] [id number] [place] [address]
[2020-06-20 07:26] LABS: BASOPHILS 0.2 % (0-2); EOSINOPHILS 0.1 % (0-7); HEMOGLOBIN 10.7 g/dL (12-16); IMMATURE GRANULOCYTES 0.4 % (0-5); LYMPHOCYTE ABS# 1.29 10x3/uL (1.18-3.74); LYMPHOCYTES 11.4 % (15-50); MCH 24.3 pg (26.0-34.0); MCHC 29.7 g/dL (31.0-37.0); MCV 81.6 fL (80.0-100.0); MEAN PLATELET VOLUME 10.2 fL (7.4-10.4); MONOCYTES 10.5 % (2-11); NEUTROPHIL ABS# 8.74 10x3/uL (1.56-6.13); NEUTROPHILS 77.4 % (40-80); PLATELET COUNT 247 10x3/uL (130-400); RBC 4.41 10x6/uL (4.00-5.40); RDW 15.3 % (11.5-14.5); WBC 11.3 10x3/uL (4.8-10.8)
[2020-06-20 08:06] VITALS: BP 104/55
[2020-06-20 08:06] LABS: ANION GAP 13.3 mmol/L (8-16); BILIRUBIN - TOTAL 0.29 mg/dL (0.2-1.3); CALCIUM 8.3 mg/dL (8.5-10.1); CARBON DIOXIDE 27.6 mmol/L (21.0-32.0); MAGNESIUM - SERUM 1.9 mg/dL (1.8-2.4); POTASSIUM - SERUM 4.9 mmol/L (3.5-5.1); PROTEIN - SERUM 5.9 g/dL (6.4-8.2)
--- NOTE | 2020-06-20 10:27 | NUR ---
PATIENT CARE ASSUMED THIS AM AFTER REPORT TAKEN. PATIENT IN GOOD SPIRITS AND ABLE TO GET OUT OF BED WITH LITTLE ASSISTANCE. ENCOURAGING PATIENT TO COUGH AND DEEP BREATHE AND PAIN MEDS GIVEN WHEN ASKED.
--- NOTE | 2020-06-20 11:13 | MORECARE ---
CASE MANAGEMENT DISCHARGE SUMMARY PATIENT: PRINCESS CARRILLO UNIT: [id number] ADM DATE: 06/19/20 AGE: 70 : 52 SEX: F ROOM/BED: D.1207 AUTHOR: GARETH,DEYANIRA PHYSICIAN: REFERRING PHYSICIAN: JASIEL LLAMAS DO DATE OF SERVICE: 06/20/20 Case Management Discharge Planning Summary COMMENTS ENTERED DATE: 06/20/20 11:02 CT COMMENT TYPE: Discharge Planning REVIEWER: Alta Killian I called [facility] and first visit is for Thursday at 3:30. I have called patient's nurse, Arelis and she will put it on her DC instruction sheet. [facility] [address] Phone [phone] ENTERED DATE: 06/19/20 19:21 CT COMMENT TYPE: Discharge Planning REVIEWER: Jer Velazquez [facility]. CM met with patient to complete DC plan and to evaluate needs. Patient lives independently with her , Carl Mauricio, . Patient stated that her home is safe and has electricity and running water. Patient stated that she has no problems paying for medications and she fills her medications at [facility]. Patient stated that her primary care physician is Dr. Quispe. At discharge, the patient plans to return home and feels this is a safe discharge. CM discussed availability of home health, rehab services, and medical equipment. Patient declined HHS, SNF, IPR, and DME. Patient stated that she would like have outpatient therapy with [facility]. Patient stated that she has a walker and CPM. Clinical Documents faxed to [facility]. PADMAJA signed and placed on chart. Patient voiced no other needs at this time and is satisfied with DC plan. Transportation provider at discharge will be with her Ed. LATHAM delivered, explained, signed by the patient, and placed in chart. Signed form also left with the patient. CM will continue to follow and will assist as needed with dc plans/needs. ENTERED DATE: 06/19/20 17:08 CT COMMENT TYPE: Discharge Planning REVIEWER: Jer LATHAM delivered, explained, signed by the patient, and placed in chart. Signed form also left with the patient. CM will continue to follow and will assist as needed with dc plans/needs. DCP REVIEW SUMMARY ANTICIPATED D/C DATE: EXPECTED LOS : CASE STATUS: DCP Initiated INITIAL REVIEW: 06/19/2020 INITIAL REVIEWER: Jer Velazquez FINAL DISCHARGE DISPOSITION: : FINAL REVIEWER: FINAL REVIEW DATE: DCP Focus Questions & Answers DCP Evaluation QUESTION: ANSWER Patient and/or caregiver agree upon recommended discharge plan? : Yes Family / Caregiver's ability to cope with chronic illness: : a. Adequate (ability to meet patient's medical needs, ensures patient attends medical appts.) Patient's current cognitive status: : *Oriented to person, place, situation, time and present Patient's ability to cope with chronic illness : d. No chronic illness Patient gives permission to discuss discharge plans with: (name, relationship and number) : , Ed Pace, Does the patient have the ability to pay for or attain post discharge needs / services? : Yes Functional screen assessment: : Basic needs can adequately be met by self Family / Caregiver's ability to cope with chronic illness: : a. Adequate (ability to meet patient's medical needs, ensures patient attends medical appts.) Physical Status: : Independent with ADL's Equipment needed for post hospitalization: : None Is there a likelihood that the patient will require additional services to return to the preadmission environment? : Yes Living Arrangements: : Home with Spouse/Significant Other Patient with capacity for self-care or can be cared for in same environment as prior to hospitalization? : Yes Baseline cognitive status: : *Oriented to person, place, situation, time and present Physical environment modification needed / anticipated for discharge: : No Medication Management: : Patient states can read and understand medication labels Medication Management: : Patient states can afford medications Pharmacy name(s): : [facility] Does Patient have transportation to get home and to follow-up medical appointments when discharged from the hospital? : Yes Would patient like to participate in any Care Coordination programs (if applicable): : Not applicable Does the patient have electricity at home? : Yes Does the patient have running water in their house? : Yes Equipment in use: : Walker - Rolling Other Equipment comments: : CPM Mental health screen: : No mental health history DCP Re-evaluation QUESTION: ANSWER Would patient like to participate in any Care Coordination programs (if applicable): : Not applicable PATIENT: PRINCESS CARRILLO ENCOUNTER: [id number] MEDICAL RECORD#: [id number] ADMISSION DATE: 06/19/2020 DISCHARGE DATE: ATTENDING MD: JASIEL GALLAGHER : AGE: 70 MARITAL STATUS: M DC PLAN ID: [id number] FACILITY: [facility] PRINTED ON: 06/20/20 11:13 CT All edits/amendments must be made on the electronic document DICTATION DATE: 06/20/201112 ASSISTANT COUNTY ATTORNEY: GABRIELE 06/20/20 111 RPT#: [id number] DC DATE: STATUS: ADM IN [facility] [address] [place] [address] END OF REPORT
[2020-06-20 11:25] VITALS: BP 99/46
[2020-06-20] MEDS ORDERED: PERCOCET 5-3251 TAB PO (12:38)
[2020-06-20] MEDS ORDERED: VISTARIL50 MG PO (12:38)
[2020-06-20] MEDS ORDERED: ELIQUIS2.5 MG PO (12:38)
--- NOTE | 2020-06-20 14:34 | NUR ---
PATIENT TO BE DISCHARGED HOME WITH SUPPLIES TO CHANGE DRESSING AT HOME NUMEROUS TIMES AND DISCHARGE INSTRUCTION GIVEN TO PATIENT AND SIGNED WELL ON HOW TO CARE FOR SITE AND OUTPATIENT THERAPY AND RETURN APPT WITH HER PHYSICIAN. PATIENT SAYS SHE UNDERSTANDS THE INSTRUCTION AND IS READY TO GO HOME. SALINE LOCK DISCONTINUED.
--- NOTE | 2020-06-20 14:40 | NUR ---
DRESSING RO RIGHT LEG CHANGED WHILE PATIENT IN ROOM AND DISCUSSED HOW TO DO THIS AT HOME.
--- NOTE | 2020-06-20 15:40 | NUR ---
UPON FINDING OUT PATIENT WAS TO BE DISCHARGED THE PATIENT ASKED ME IF SHE SHOULD CALL HER RIDE AND I TOLD HER IT MAY TAKE AWHILE TO GET YOU DISCHAGED. THE PATIENT SAID OK AND WE STARTED WORKING ON GETTING HER DISCHARGED AND ONCE PAPERWORK DONE I SAID YOU CAN CALL YOUR RIDE YOU ARE READY TO GO BUT WE NEED TO GET YOU DRESSED FIRST. I TOLD THE PATIENT I WAS GOING TO PUT THE PAPERWORK UP AND I WOULD BE RIGHT BACK UPON ENTERING ROOM PATIENT UPSET AND SAID I HAD TO GET DRESSED BY MYSELF AND I NEED HELP PUTTING MY SHOES ON. I TOLD I AN SORRY I WAS GOING TO HELP YOU AND LET ME FIX YOUR SHOES. PATIENT THEN TOLD US HER RIDE WAS HERE AND I ASKED HER IF HE WAS IN THE ER [place] OR THE FRONT AND SHE SAID THE ONLY DOOR THAT IS OPEN FOR ME IS THE FRONT TAKE ME THERE. UPON WHEELING PATIENT OUT AND GOT TO THE FRONT HER RIDE WAS NO WHERE IN SITE. I ASKED HER AGAIN IF HE MIGHT BE HERE OR ANYWHERE ELSE. SHE REPLIED HE IS ON THE WAY. WAITED FOR SEVERAL MINUTES AND I ASKED IF SHE WAS ABLE TO CALL HER RIDE AND SHE SAID HE CAME EARLIER TO GET ME AN HOUR AGO AND I WAS NOT READY HE HAS HIS PHONE IN THE CAR SO I CANNOT CALL HIM. I EXPLAINED IF HE DID NOT COME SOON I WOULD NEED TO WHEEL HER BACK I WAS NOT ABLE TO STAY AN INDEFINITE PERIOD OF TIME SINCE WE COULD NOT CALL HIM. SHE GOT ANGRY AND SAID JUST GIVE ME MY WALKER AND I WILL GO WAIT OUTSIDE AND I EXPLAINED I WANTED TO WAIT FOR HER RIDE AND WAS NOT WILLING TO RISK HER FALLING. SHE SAID TO JUST GIVE HER HER WALKER AND SHE WENT OUTSIDE WITHOUT ME OR THE WHEELCHAIR. I CALLED KETTY ZAVALA AND THEN CALLED AND NOTIFIED THE HOUSE SUP OF THE SITUATION. WE THEN SAW PATIENT WAS GETTING INTO A CAR AND LEAVING.
--- NOTE | 2020-06-20 16:36 | MORECARE ---
CASE MANAGEMENT DISCHARGE SUMMARY PATIENT: PRINCESS CARRILLO UNIT: [id number] ADM DATE: 06/19/20 AGE: 70 : 51 SEX: F ROOM/BED: D.1207 AUTHOR: GARETH,DEYANIRA PHYSICIAN: REFERRING PHYSICIAN: JASIEL LLAMAS DO DATE OF SERVICE: 06/20/20 Case Management Discharge Planning Summary COMMENTS ENTERED DATE: 06/20/20 11:02 CT COMMENT TYPE: Discharge Planning REVIEWER: Alta Killian I called [facility] and first visit is for Thursday at 3:30. I have called patient's nurse, Arelis and she will put it on her DC instruction sheet. [facility] [address] Phone [phone] ENTERED DATE: 06/19/20 19:21 CT COMMENT TYPE: Discharge Planning REVIEWER: Jer Velazquez [facility]. CM met with patient to complete DC plan and to evaluate needs. Patient lives independently with her , Carl Mauricio, . Patient stated that her home is safe and has electricity and running water. Patient stated that she has no problems paying for medications and she fills her medications at [facility]. Patient stated that her primary care physician is Dr. Quispe. At discharge, the patient plans to return home and feels this is a safe discharge. CM discussed availability of home health, rehab services, and medical equipment. Patient declined HHS, SNF, IPR, and DME. Patient stated that she would like have outpatient therapy with [facility]. Patient stated that she has a walker and CPM. Clinical Documents faxed to [facility]. PADMAJA signed and placed on chart. Patient voiced no other needs at this time and is satisfied with DC plan. Transportation provider at discharge will be with her Ed. LATHAM delivered, explained, signed by the patient, and placed in chart. Signed form also left with the patient. CM will continue to follow and will assist as needed with dc plans/needs. ENTERED DATE: 06/19/20 17:08 CT COMMENT TYPE: Discharge Planning REVIEWER: Jer LATHAM delivered, explained, signed by the patient, and placed in chart. Signed form also left with the patient. CM will continue to follow and will assist as needed with dc plans/needs. DCP REVIEW SUMMARY ANTICIPATED D/C DATE: EXPECTED LOS : CASE STATUS: DCP Initiated INITIAL REVIEW: 06/19/2020 INITIAL REVIEWER: Jer Velazquez FINAL DISCHARGE DISPOSITION: : FINAL REVIEWER: FINAL REVIEW DATE: DCP Focus Questions & Answers DCP Evaluation QUESTION: ANSWER Patient and/or caregiver agree upon recommended discharge plan? : Yes Family / Caregiver's ability to cope with chronic illness: : a. Adequate (ability to meet patient's medical needs, ensures patient attends medical appts.) Patient's current cognitive status: : *Oriented to person, place, situation, time and present Patient's ability to cope with chronic illness : d. No chronic illness Patient gives permission to discuss discharge plans with: (name, relationship and number) : , Ed Pace, Does the patient have the ability to pay for or attain post discharge needs / services? : Yes Functional screen assessment: : Basic needs can adequately be met by self Family / Caregiver's ability to cope with chronic illness: : a. Adequate (ability to meet patient's medical needs, ensures patient attends medical appts.) Physical Status: : Independent with ADL's Equipment needed for post hospitalization: : None Is there a likelihood that the patient will require additional services to return to the preadmission environment? : Yes Living Arrangements: : Home with Spouse/Significant Other Patient with capacity for self-care or can be cared for in same environment as prior to hospitalization? : Yes Baseline cognitive status: : *Oriented to person, place, situation, time and present Physical environment modification needed / anticipated for discharge: : No Medication Management: : Patient states can read and understand medication labels Medication Management: : Patient states can afford medications Pharmacy name(s): : [facility] Does Patient have transportation to get home and to follow-up medical appointments when discharged from the hospital? : Yes Would patient like to participate in any Care Coordination programs (if applicable): : Not applicable Does the patient have electricity at home? : Yes Does the patient have running water in their house? : Yes Equipment in use: : Walker - Rolling Other Equipment comments: : CPM Mental health screen: : No mental health history DCP Re-evaluation QUESTION: ANSWER Would patient like to participate in any Care Coordination programs (if applicable): : Not applicable PATIENT: PRINCESS CARRILLO ENCOUNTER: [id number] MEDICAL RECORD#: [id number] ADMISSION DATE: 06/19/2020 DISCHARGE DATE: 06/20/2020 ATTENDING MD: JASIEL GALLAGHER : AGE: 70 MARITAL STATUS: M DC PLAN ID: [id number] FACILITY: [facility] PRINTED ON: 06/20/20 16:36 CT All edits/amendments must be made on the electronic document DICTATION DATE: 06/20/201635 FLORAL DECORATOR: GABRIELE 06/20/20 163 RPT#: [id number] DC DATE:06/20/20 STATUS: DIS IN [facility] [address] [place] [address] END OF REPORT
== END 2020-06-20 15:55 | disposition home or self-care (01) ==
LOC: D.OPS 06-19 07:00 → D.SDCHOLD 06-19 09:10 → D.M3 06-19 09:22 → OBSVTIME 06-19 09:22 → D.SDCHOLD 06-19 09:22 → D.OPS 06-19 10:40 → D.SDCHOLD 06-19 10:40 → D.OPS 06-19 11:00 → D.SDCHOLD 06-19 11:00 → EDSTATUS 06-19 11:00 → D.M3 06-19 15:03
PROVIDERS: Family Medicine; ADMIT Orthopaedic Surgery; ATTEND Orthopaedic Surgery
DX: M17.11 Unilateral primary osteoarthritis, right knee (principal); I10 Essential (primary) hypertension